=== PATIENT | female | born 1930 | race Caucasian/White ===

== ENCOUNTER 2018-07-19 14:01 | Inpatient (IN) | payer OTHER ==
[~2018-07-19] VITALS: Ht 167.6 cm; Wt 77.7 kg
[~2018-07-19 14:01] MED LIST: ATORVASTATIN CA20 MG PO; ATROVENT HFA12.9 GM INH; CALCIUM + VITA1 EACH PO; DICYCLOMINE HCL10 MG PO; FUROSEMIDE40 MG PO; GABAPENTIN100 MG PO; IRON PO; ISOSORBIDE MONO20 MG PO; LEVEMIR100 UNIT/1 SQ; LISINOPRIL2.5 MG PO; METOPROLOL SUCC50 MG PO; METOPROLOL TART50 MG PO; NOVOLIN 70100 UNITS/ SQ; NOVOLOG100 UNIT/1 SQ; POTASSIUM CHLO10 ME1 PO; PULMICORT1 MG/2 ML NEB; TIZANIDINE HCL4 M1 PO; ULTRAM 50MG50 MG PO; WARFARIN PO
--- OUTSIDE RECORDS SUMMARY | 2018-07-19 14:05 | XMS REPORT | Continuity of Care Document ---
Author Author [facility] Interface Address Unknown Phone Unavailable Problems Problem Status Onset Date Classification Date Reported Comments Source RT LOWER EXTREMITY VASCULAR OCCLUSSION Active 03/07/2012 [facility] Diabetes mellitus Active Problem 03/14/2012 [facility] Pain in right leg Active Problem 03/14/2012 [facility] ADMINISTRTVE ENCOUNT NOS Active [facility] PARANOID PERSONALITY Active [facility] Medications Medication Details Route Status Patient Instructions Ordering Provider Order Date Source Lovenox 80 mg/0.8 mL subcutaneous solution 80 mg, SUB-Q, Q12H, 12 syr, 1, 1, Substitution Allowed SUB-Q Active [place] 03/12/2012 [facility] Lovenox 80 mg, 0.8 mL, Route: SUB-Q, Drug form: INJ, ONCE, Priority: STAT, Start date: 03/12/12 15:41:00, Stop date: 03/12/12 15:41:00 SUB-Q No Longer Active [place] 03/12/2012 [facility] Coumadin 7.5 mg, 1 tab, Route: PO, Drug form: TAB, ONCE, Priority: STAT, Start date: 03/12/12 15:41:00, Stop date: 03/12/12 15:41:00 PO No Longer Active [place] 03/12/2012 [facility] Coumadin 5 mg oral tablet 5 mg, 1 tab, PO, Daily, 30 tab, Substitution Allowed, TAB PO Active [place] 03/12/2012 [facility] insulin aspart 100 units/mL subcutaneous solution 18 unit, 0.18 mL, SUB-Q, TID-Before Meals, 1 vial, 2, 2, Substitution Allowed, SOLN SUB-Q Active [place] 03/12/2012 [facility] insulin detemir 100 units/mL subcutaneous solution 30 unit, 0.3 mL, SUB-Q, Q12H, 1 vial, 2, 2, Substitution Allowed, SOLN SUB-Q Active [place] 03/12/2012 [facility] insulin aspart 15 unit, 0.15 mL, Route: SUB-Q, Drug form: SOLN, TID-Before Meals, PRN Blood Glucose Results, Start date: 03/11/12 16:48:00, Duration: 30 day, Stop date: 04/10/12 16:47:00 SUB-Q No Longer Active Rick 03/11/2012 [facility] Coumadin 7.5 mg, 1 tab, Route: PO, Drug form: TAB, ONCE, Priority: NOW, Start date: 03/11/12 9:28:00, Stop date: 03/11/12 9:28:00 PO No Longer Active Benjamin 03/11/2012 [facility] heparin 5,400 unit, 5.4 mL, Route: IV, Drug form: INJ, PRN, PRN Abnormal Lab Result, Start date: 03/11/12 7:14:00, Duration: 30 day, Stop date: 04/10/12 7:13:00 IV No Longer Active Madhavi Astudillo 03/11/2012 [facility] heparin 2,700 unit, 2.7 mL, Route: IV, Drug form: INJ, PRN, PRN Abnormal Lab Result, Start date: 03/11/12 7:12:00, Duration: 30 day, Stop date: 04/10/12 7:11:00 IV No Longer Active Madhavi Astudillo 03/11/2012 [facility] insulin detemir 30 unit, 0.3 mL, Route: SUB-Q, Drug form: INJ, Q12H, Start date: 03/10/12 21:00:00, Duration: 30 day, Stop date: 04/09/12 9:00:00 SUB-Q No Longer Active Rick 03/11/2012 [facility] insulin aspart 20 unit, 0.2 mL, Route: SUB-Q, Drug form: SOLN, TID-Before Meals, Start date: 03/10/12 16:30:00, Stop date: 04/09/12 11:30:00 SUB-Q No Longer Active Rick 03/10/2012 [facility] insulin aspart 10 unit, 0.1 mL, Route: SUB-Q, Drug form: SOLN, TID-Before Meals, PRN Blood Glucose Results, Start date: 03/10/12 16:27:00, Duration: 30 day, Stop date: 04/09/12 16:26:00 SUB-Q No Longer Active Rick 03/10/2012 [facility] morphine Sulfate 2 mg, 1 mL, Route: IVP, Drug form: INJ, Q4H, PRN Pain, Start date: 03/10/12 12:14:00, Duration: 30 day, Stop date: 04/09/12 12:13:00 IVP No Longer Active Sourav 03/10/2012 [facility] [place] 10/325 oral tablet 1 tab, Route: PO, Drug Form: TAB, Q4H, PRN Pain, STAT, Start date: 03/10/12 12:14:00, Duration: 30 day, Stop date: 04/09/12 12:13:00 PO No Longer Active Sourav 03/10/2012 [facility] insulin aspart 5 unit, 0.05 mL, Route: SUB-Q, Drug form: SOLN, TID-Before Meals, Start date: 03/10/12 11:30:00, Duration: 30 day, Stop date: 04/09/12 7:30:00 SUB-Q No Longer Active Rick 03/10/2012 [facility] insulin aspart 12 unit, 0.12 mL, Route: SUB-Q, Drug form: SOLN, TID-Before Meals, PRN Blood Glucose Results, Start date: 03/10/12 10:57:00, Duration: 30 day, Stop date: 04/09/12 10:56:00 SUB-Q No Longer Active Rick 03/10/2012 [facility] Dextrose 50% Syringe 25 gm, 50 mL, Route: IVP, Drug Form: INJ, PRN, PRN Blood Glucose Results, Start date: 03/10/12 10:57:00, Duration: 30 day, Stop date: 04/09/12 10:56:00 IVP No Longer Active Sourav 03/10/2012 [facility] glucagon 1 mg, Route: IM, Drug form: PDR/INJ, PRN, PRN Blood Glucose Results, Start date: 03/10/12 10:57:00, Duration: 30 day, Stop date: 04/09/12 10:56:00 IM No Longer Active Sourav 03/10/2012 [facility] insulin aspart 2 unit, 0.02 mL, Route: SUB-Q, Drug form: SOLN, TID-Before Meals, PRN Blood Glucose Results, Start date: 03/09/12 15:09:00, Duration: 30 day, Stop date: 04/08/12 15:08:00 SUB-Q No Longer Active [place] 03/09/2012 [facility] glucagon 1 mg, Route: IM, Drug form: PDR/INJ, PRN, PRN Blood Glucose Results, Start date: 03/09/12 15:09:00, Duration: 30 day, Stop date: 04/08/12 15:08:00 IM No Longer Active [place] 03/09/2012 [facility] Dextrose 50% Syringe 12.5 gm, 25 mL, Route: IVP, Drug Form: INJ, PRN, PRN Blood Glucose Results, Start date: 03/09/12 15:09:00, Duration: 30 day, Stop date: 04/08/12 15:08:00 IVP No Longer Active [place] 03/09/2012 [facility] calcium gluconate + Sodium Chloride 0.9% IV 80 mL 2,000 mg, 20 mL, Route: IVPB, ONCE, Start date: 03/09/12 10:22:00, Duration: 1 doses or times, Stop date: 03/09/12 10:22:00, For Ionized Ca=1 - 1.03 mmol/L or Corrected Ca=8 - 8.5mg/dLFor Ionized Ca=1 - 1.03 mmol/L or Corrected Ca=8 - 8.5mg/dL IVPB No Longer Active [place] 03/09/2012 [facility] magnesium sulfate 2 gm, 50 mL, Route: IVPB, Drug form: INJ, ONCE, Start date: 03/09/12 10:19:00, Duration: 1 doses or times, Stop date: 03/09/12 10:19:00, For Mg=1.8 - 2 mg/dLFor Mg=1.8 - 2 mg/dL IVPB No Longer Active [place] 03/09/2012 [facility] Heparin - infusion (DVT/PE Protocol) heparin 25,000 units in D5W 500 mL Premix 25,000 unit 25,000 unit, 500 mL, Rate: Start at 18 unit/Kg/hr -adjust per DVT/PE Protocol, Route: IV, Total Volume: 500 ml, Start date: 03/09/12 9:54:00, Duration: 30 day, Stop date: 04/08/12 9:53:00, Replace Every: 24 hr IV No Longer Active Nicole 03/09/2012 [facility] simvastatin 40 mg, 1 tab, Route: PO, Drug form: TAB, Bedtime, Start date: 03/07/12 21:00:00, Duration: 30 day, Stop date: 04/05/12 21:00:00 PO No Longer Active Tim 03/08/2012 [facility] potassium chloride 10 mEq oral tablet, extended release 10 mEq, 1 tab, Route: PO, Drug form: ERTAB, BID, Start date: 03/07/12 17:00:00, Duration: 30 day, Stop date: 04/06/12 9:00:00 PO No Longer Active Tim 03/07/2012 [facility] Pulmicort Flexhaler 1 inhalation, Route: INHALATION, Drug Form: PWDR, BID, Start date: 03/07/12 17:00:00, Duration: 30 day, Stop date: 04/06/12 9:00:00 INHALATION No Longer Active [facility] 03/07/2012 [facility] alteplase 10 mg + Sodium Chloride 0.9% IV 1,000 mL 1,000 mL, Rate: 50 ml/hr, Infuse over: 20 hr, Route: INTRAARTERIAL, Dosing Weight 67 kg, Total Volume: 1,000, Start date: 03/07/12 13:23:00, Duration: 7 day, Stop date: 03/14/12 13:22:00 INTRAARTERIAL No Longer Active Josias 03/07/2012 [facility] heparin 10,000 unit + Sodium Chloride 0.9% IV 1,000 mL 1,000 mL, Rate: 30 ml/hr, Infuse over: 33.3 hr, Route: IV, Dosing Weight 67 kg, Total Volume: 1,000, Start date: 03/07/12 13:21:00, Stop date: 03/14/12 13:20:00 IV No Longer Active Josias 03/07/2012 [facility] heparin 1000 units in NS Premix (titrate) 1,000 unit 1,000 unit, 500 mL, Rate: 30 ml per hour, Route: IV, Total Volume: 500, Start date: 03/07/12 12:30:00, Duration: 30 day, Stop date: 04/06/12 12:29:00, Replace Every: 24 hr IV No Longer Active [place] 03/07/2012 [facility] Toprol-XL 50 mg oral tablet, extended release 50 mg, 1 tab, Route: PO, Drug form: ERTAB, Daily, Start date: 03/07/12 11:00:00, Duration: 30 day, Stop date: 04/06/12 9:00:00 PO No Longer Active Tim 03/07/2012 [facility] digoxin 125 mcg (0.125 mg) oral tablet 0.125 mg, 1 tab, Route: PO, Drug form: TAB, Daily, Start date: 03/07/12 11:00:00, Duration: 30 day, Stop date: 04/06/12 9:00:00 PO No Longer Active Tim 03/07/2012 [facility] furosemide 40 mg oral tablet 40 mg, 1 tab, Route: PO, Drug form: TAB, Daily, Start date: 03/07/12 11:00:00, Duration: 30 day, Stop date: 04/06/12 9:00:00 PO No Longer Active Tim 03/07/2012 [facility] Insulin regular 100 unit + Sodium Chloride 0.9% (titrate) 100 mL 100 mL, Rate: Start Insulin Drip Per ICU Protocol, Route: IVPB, Total Volume: 100, Duration: 30 day, Stop date: 04/06/12 8:49:00, Replace Every: 24 hr, Initial Insulin Drip Rate (units/hour)=(Fasting Blood Glucose-60)X0.03 "multiplier".Initial Insulin Drip Rate (units/hour)=(Fasting Blood Glucose- 60)X0.03 "multiplier". IVPB No Longer Active [facility] 03/07/2012 [facility] Dextrose 50% Syringe 12.5 gm, 25 mL, Route: IVP, Drug Form: INJ, PRN, PRN Blood Glucose Results, Start date: 03/07/12 8:50:00, Duration: 30 day, Stop date: 04/06/12 8:49:00 IVP No Longer Active [facility] 03/07/2012 [facility] magnesium sulfate 2 gm, 50 mL, Route: IVPB, Drug form: INJ, ONCE, Total dose=2 gm, Start date: 03/07/12 8:48:00, Duration: 1 doses or times, Stop date: 03/07/12 8:48:00 IVPB No Longer Active Tim 03/07/2012 [facility] Atrovent HFA Substitution Allowed, Soft Stop Active 03/07/2012 [facility] simvastatin 40 mg oral tablet Substitution Allowed Active 03/07/2012 [facility] lisinopril 2.5 mg oral tablet Substitution Allowed Active 03/07/2012 [facility] Levemir Substitution Allowed No Longer Active 03/07/2012 [facility] warfarin Substitution Allowed No Longer Active 03/07/2012 [facility] isosorbide mononitrate Substitution Allowed Active 03/07/2012 [facility] digoxin 125 mcg (0.125 mg) oral tablet Substitution Allowed Active 03/07/2012 [facility] metoprolol 25 mg oral tablet Substitution Allowed Active 03/07/2012 [facility] potassium chloride 10 mEq oral capsule, extended release Substitution Allowed Active 03/07/2012 [facility] furosemide 40 mg oral tablet Substitution Allowed Active 03/07/2012 [facility] Iron Chews Substitution Allowed Active 03/07/2012 [facility] calcium-vitamin D 150 mg-100 units oral tablet Substitution Allowed, Soft Stop Active 03/07/2012 [facility] NovoLog Substitution Allowed Active 03/07/2012 [facility] Pulmicort Flexhaler Substitution Allowed, Soft Stop Active Tim 03/07/2012 [facility] hydromorphone 0.2 mg/mL [employer] (6 mg/30 mL) INJ Syringe 6 mg 6 mg, 30 mL, Route: IV, Initial Loading Dose: 0.4mg, [employer]ICE Dose: 0.2 mg, [employer]ICE Lockout: 10 minutes, Continuous Basal Rate: 0 mg, 4 Hour Limit (In MG): 6, Drug Form: INJ, Continuous, Pain, Start date: 03/07/12 5:26:00, Duration: 30 day, Stop date: 04/06/12... IV No Longer Active Sourav 03/07/2012 [facility] naloxone 0.04 mg, 0.1 mL, Route: IVP, Drug form: INJ, Q2MIN, PRN Narcotic Reversal, Start date: 03/07/12 5:26:00, Duration: 30 day, Stop date: 04/06/12 5:25:00 IVP No Longer Active [facility] 03/07/2012 [facility] nalbuphine 2 mg, 0.2 mL, Route: IVP, Drug form: INJ, Q2H, PRN Itching, Start date: 03/07/12 5:26:00, Duration: 5 doses or times, Stop date: 03/19/12 0:00:00 IVP No Longer Active [facility] 03/07/2012 [facility] ondansetron 4 mg, 2 mL, Route: IVP, Drug form: INJ, ONCE, PRN Nausea & Vomiting, Start date: 03/07/12 5:26:00 IVP No Longer Active [facility] 03/07/2012 [facility] Heparin - infusion (Stroke/Prophylaxis Protocol) heparin 25,000 units in D5W 500 mL Premix 25,000 u 25,000 unit, 500 mL, Rate: Start at 14 unit/Kg/hr -adjust per [place] protocol, Route: IV, Total Volume: 500 ml, Start date: 03/07/12 5:25:00, Duration: 30 day, Stop date: 04/06/12 5:24:00, Replace Every: 24 hr IV No Longer Active [place] 03/07/2012 [facility] heparin 1000 units in NS Premix (titrate) 1,000 unit 1,000 unit, 500 mL, Rate: Titrate, Route: IV, Total Volume: 500, Start date: 03/07/12 5:24:00, Duration: 30 day, Stop date: 04/06/12 5:23:00, Replace Every: 24 hr IV No Longer Active [facility] 03/07/2012 [facility] Sodium Chloride 0.9% IV 1,000 mL 1,000 mL, Rate: 125 ml/hr, Infuse over: 8 hr, Route: IV, Dosing Weight 82.002 kg, Total Volume: 1,000, Start date: 03/07/12 5:24:00, Duration: 30 day, Stop date: 04/06/12 5:23:00 IV No Longer Active [facility] 03/07/2012 [facility] Allergies, Adverse Reactions, Alerts Substance Category Reaction Severity Reaction type Status Date Reported Comments Source Demerol HCl drug allergy Allergy Active [facility] penicillins drug allergy Allergy Active [facility] Immunizations Immunization Date Given Site Status Last Updated Comments Source Results Order Name Results Value Reference Range Date Interpretation Comments Source BEDSIDE GLUCOSE TESTING Comment1 Notify CARA 03/12/2012 NA [facility] BEDSIDE GLUCOSE TESTING Gluc POC Lif[place]n 267 mg/dL 70 - 99 03/12/2012 [place] 2Interpretive Data: Upper Reportable Limit: 200 mg/dL. [facility] BEDSIDE GLUCOSE TESTING Gluc POC Lif[place]n 180 mg/dL 70 - 99 03/12/2012 [place] 3Interpretive Data: Upper Reportable Limit: 200 mg/dL. [facility] BEDSIDE GLUCOSE TESTING Comment1 Notify JASE/ 03/12/2012 NA [facility] CHEMISTRY AGAP 14.6 meq/L 10.0 - 20.0 03/12/2012 Normal [facility] CHEMISTRY Chloride Lvl 103 meq/L 95 - 109 03/12/2012 Normal [facility] CHEMISTRY Potassium Lvl 4.6 meq/L 3.5 - 5.1 03/12/2012 Normal [facility] CHEMISTRY Sodium Lvl 141 meq/L 135 - 145 03/12/2012 Normal [facility] CHEMISTRY BUN 18 mg/dL 7 - 22 03/12/2012 Normal [facility] CHEMISTRY Creatinine Lvl 0.8 mg/dL 0.5 - 1.4 03/12/2012 Normal [facility] CHEMISTRY Glucose Lvl 122 mg/dL 70 - 99 03/12/2012 [place] 5Interpretive Data: Adult reference range values reflect the clinical guidelines of the [employer]. [facility] CHEMISTRY Calcium Lvl 9.0 mg/dL 8.5 - 10.5 03/12/2012 Normal [facility] CHEMISTRY CO2 28 meq/L 24 - 32 03/12/2012 Normal [facility] HEMATOLOGY Basophils # 0.0 K/CMM 0.0 - 0.2 03/12/2012 Normal [facility] HEMATOLOGY Eosinophils # 0.2 K/CMM 0.0 - 0.5 03/12/2012 Normal [facility] HEMATOLOGY Basophils 0.4 % 0.0 - 1.0 03/12/2012 Normal [facility] HEMATOLOGY Segs-Bands # 4.8 K/CMM 1.5 - 8.1 03/12/2012 Normal [facility] HEMATOLOGY Eosinophils 3.0 % 0.0 - 4.0 03/12/2012 Normal [facility] HEMATOLOGY Lymphocytes # 2.0 K/CMM 1.0 - 5.5 03/12/2012 Normal [facility] HEMATOLOGY Monocytes # 0.8 K/CMM 0.0 - 0.8 03/12/2012 Normal [facility] HEMATOLOGY Monocytes 9.9 % 2.0 - 12.0 03/12/2012 Normal [facility] HEMATOLOGY Segs 61.2 % 45.0 - 75.0 03/12/2012 Normal [facility] HEMATOLOGY Lymphocytes 25.5 % 20.0 - 40.0 03/12/2012 [facility] HEMATOLOGY PTT 75.5 s 22.9 - 35.8 03/12/2012 [place] 12Interpretive Data: Heparin Therapeutic Range: 57 - 92 Seconds [facility] HEMATOLOGY PT 16.3 s 12.0 - 14.7 03/12/2012 [facility] HEMATOLOGY INR 1.32 0.85 - 1.17 03/12/2012 [place] 9Interpretive Data: RECOMMENDED RANGES FOR PROTIME INR: 2.0-3.0 for most medical and surgical thromboembolic states. 2.5-3.5 for artificial heart valves and recurrent embolism. INR SHOULD BE USED ONLY FOR PATIENTS ON STABLE ANTICOAGULANT THERAPY. [facility] HEMATOLOGY Hgb 10.7 g/dL 12.0 - 16.0 03/12/2012 [facility] HEMATOLOGY MCH 33.6 pg 27.0 - 31.0 03/12/2012 [facility] HEMATOLOGY Hct 30.7 % 36.0 - 48.0 03/12/2012 LOW [facility] HEMATOLOGY MCV 96.5 fL 81.0 - 99.0 03/12/2012 [facility] HEMATOLOGY MCHC 34.9 g/dL 32.0 - 36.0 03/12/2012 [facility] HEMATOLOGY MPV 8.7 fL 7.4 - 10.4 03/12/2012 [facility] HEMATOLOGY RDW 13.4 % 11.5 - 14.5 03/12/2012 Normal [facility] HEMATOLOGY Platelet 195 K/CMM 133 - 450 03/12/2012 Normal [facility] HEMATOLOGY WBC 7.9 K/CMM 3.7 - 10.4 03/12/2012 [facility] HEMATOLOGY RBC 3.18 M/CMM 4.20 - 5.40 03/12/2012 LOW [facility] HEMATOLOGY PTT 72.1 s 22.9 - 35.8 03/12/2012 [place] 13Interpretive Data: Heparin Therapeutic Range: 57 - 92 Seconds [facility] BEDSIDE GLUCOSE TESTING Comment1 Notify RN/ 03/12/2012 NA [facility] BEDSIDE GLUCOSE TESTING Gluc POC Lifscn 123 mg/dL 70 - 99 03/12/2012 [place] 4Interpretive Data: Upper Reportable Limit: 200 mg/dL. [facility] HEMATOLOGY PT 14.5 s 12.0 - 14.7 03/11/2012 Normal [facility] HEMATOLOGY INR 1.13 0.85 - 1.17 03/11/2012 Normal 10Interpretive Data: RECOMMENDED RANGES FOR PROTIME INR: 2.0-3.0 for most medical and surgical thromboembolic states. 2.5-3.5 for artificial heart valves and recurrent embolism. INR SHOULD BE USED ONLY FOR PATIENTS ON STABLE ANTICOAGULANT THERAPY. [facility] HEMATOLOGY PTT 61.3 s 22.9 - 35.8 03/11/2012 [place] 14Interpretive Data: Heparin Therapeutic Range: 57 - 92 Seconds [facility] CHEMISTRY Potassium Lvl 4.5 meq/L 3.5 - 5.1 03/11/2012 Normal [facility] CHEMISTRY Sodium Lvl 140 meq/L 135 - 145 03/11/2012 Normal [facility] CHEMISTRY Creatinine Lvl 0.8 mg/dL 0.5 - 1.4 03/11/2012 Normal [facility] CHEMISTRY BUN 13 mg/dL 7 - 22 03/11/2012 Normal [facility] CHEMISTRY Calcium Lvl 9.2 mg/dL 8.5 - 10.5 03/11/2012 Normal [facility] CHEMISTRY CO2 28 meq/L 24 - 32 03/11/2012 Normal [facility] CHEMISTRY Chloride Lvl 103 meq/L 95 - 109 03/11/2012 Normal [facility] CHEMISTRY Glucose Lvl 220 mg/dL 70 - 99 03/11/2012 [place] 6Interpretive Data: Adult reference range values reflect the clinical guidelines of the [employer]. [facility] CHEMISTRY AGAP 13.5 meq/L 10.0 - 20.0 03/11/2012 Normal [facility] CHEMISTRY Magnesium Lvl 2.0 mg/dL 1.8 - 2.4 03/11/2012 Normal [facility] CHEMISTRY Phosphorus 2.6 mg/dL 2.5 - 4.5 03/11/2012 Normal [facility] HEMATOLOGY INR 1.16 0.85 - 1.17 03/11/2012 Normal 11Interpretive Data: RECOMMENDED RANGES FOR PROTIME INR: 2.0-3.0 for most medical and surgical thromboembolic states. 2.5-3.5 for artificial heart valves and recurrent embolism. INR SHOULD BE USED ONLY FOR PATIENTS ON STABLE ANTICOAGULANT THERAPY. [facility] HEMATOLOGY PT 14.8 s 12.0 - 14.7 03/11/2012 [facility] HEMATOLOGY MCV 96.8 fL 81.0 - 99.0 03/11/2012 Normal [facility] HEMATOLOGY Hct 29.3 % 36.0 - 48.0 03/11/2012 [facility] HEMATOLOGY Hgb 10.2 g/dL 12.0 - 16.0 03/11/2012 [facility] HEMATOLOGY RBC 3.03 M/CMM 4.20 - 5.40 03/11/2012 [facility] HEMATOLOGY RDW 13.1 % 11.5 - 14.5 03/11/2012 Normal [facility] HEMATOLOGY MCH 33.7 pg 27.0 - 31.0 03/11/2012 [facility] HEMATOLOGY MCHC 34.8 g/dL 32.0 - 36.0 03/11/2012 Normal [facility] HEMATOLOGY WBC 6.5 K/CMM 3.7 - 10.4 03/11/2012 [facility] HEMATOLOGY Platelet 151 K/CMM 133 - 450 03/11/2012 [facility] HEMATOLOGY MPV 8.8 fL 7.4 - 10.4 03/11/2012 Normal [facility] HEMATOLOGY Lymphocytes 24.6 % 20.0 - 40.0 03/11/2012 [facility] HEMATOLOGY Segs 62.5 % 45.0 - 75.0 03/11/2012 [facility] HEMATOLOGY Monocytes 11.6 % 2.0 - 12.0 03/11/2012 [facility] HEMATOLOGY Basophils # 0.0 K/CMM 0.0 - 0.2 03/11/2012 [facility] HEMATOLOGY Monocytes # 0.8 K/CMM 0.0 - 0.8 03/11/2012 [facility] HEMATOLOGY Eosinophils 1.2 % 0.0 - 4.0 03/11/2012 Normal [facility] HEMATOLOGY Basophils 0.1 % 0.0 - 1.0 03/11/2012 Normal [facility] HEMATOLOGY Eosinophils # 0.1 K/CMM 0.0 - 0.5 03/11/2012 Normal [facility] HEMATOLOGY Segs-Bands # 4.1 K/CMM 1.5 - 8.1 03/11/2012 Normal [facility] HEMATOLOGY Lymphocytes # 1.6 K/CMM 1.0 - 5.5 03/11/2012 Normal [facility] CHEMISTRY Ca Norm mgdL 4.76 mg/dL 4.65 - 5.20 03/10/2012 Normal [facility] CHEMISTRY Ca Ion 1.18 mMol/L 1.16 - 1.30 03/10/2012 Normal [facility] CHEMISTRY Ca Ion mgdL 4.72 mg/dL 4.65 - 5.20 03/10/2012 Normal [facility] CHEMISTRY Ca Norm 1.19 mMol/L 1.16 - 1.30 03/10/2012 Normal [facility] CHEMISTRY Chloride Lvl 102 meq/L 95 - 109 03/10/2012 Normal [facility] CHEMISTRY Creatinine Lvl 1.0 mg/dL 0.5 - 1.4 03/10/2012 Normal [facility] CHEMISTRY BUN 11 mg/dL 7 - 22 03/10/2012 Normal [facility] CHEMISTRY Potassium Lvl 4.7 meq/L 3.5 - 5.1 03/10/2012 Normal [facility] CHEMISTRY Sodium Lvl 139 meq/L 135 - 145 03/10/2012 Normal [facility] CHEMISTRY Glucose Lvl 259 mg/dL 70 - 99 03/10/2012 [place] 7Interpretive Data: Adult reference range values reflect the clinical guidelines of the [employer]. [facility] CHEMISTRY CO2 30 meq/L 24 - 32 03/10/2012 Normal [facility] CHEMISTRY AGAP 11.7 meq/L 10.0 - 20.0 03/10/2012 Normal [facility] CHEMISTRY Calcium Lvl 8.0 mg/dL 8.5 - 10.5 03/10/2012 LOW [facility] CHEMISTRY Magnesium Lvl 1.9 mg/dL 1.8 - 2.4 03/10/2012 Normal [facility] CHEMISTRY Phosphorus 2.7 mg/dL 2.5 - 4.5 03/10/2012 [facility] HEMATOLOGY MPV 8.4 fL 7.4 - 10.4 03/10/2012 [facility] HEMATOLOGY RDW 13.5 % 11.5 - 14.5 03/10/2012 [facility] HEMATOLOGY Platelet 139 K/CMM 133 - 450 03/10/2012 [facility] [facility] HEMATOLOGY MCHC 34.1 g/dL 32.0 - 36.0 03/10/2012 [facility] HEMATOLOGY WBC 9.8 K/CMM 3.7 - 10.4 03/10/2012 [facility] HEMATOLOGY Hgb 10.8 g/dL 12.0 - 16.0 03/10/2012 [facility] HEMATOLOGY MCH 33.4 pg 27.0 - 31.0 03/10/2012 [facility] HEMATOLOGY Hct 31.8 % 36.0 - 48.0 03/10/2012 [facility] HEMATOLOGY RBC 3.24 M/CMM 4.20 - 5.40 03/10/2012 [facility] HEMATOLOGY MCV 98.0 fL 81.0 - 99.0 03/10/2012 [facility] HEMATOLOGY Segs-Bands # 7.1 K/CMM 1.5 - 8.1 03/10/2012 [facility] HEMATOLOGY Eosinophils # 0.1 K/CMM 0.0 - 0.5 03/10/2012 [facility] HEMATOLOGY Lymphocytes # 1.6 K/CMM 1.0 - 5.5 03/10/2012 [facility] HEMATOLOGY Basophils 0.1 % 0.0 - 1.0 03/10/2012 [facility] HEMATOLOGY Monocytes # 1.1 K/CMM 0.0 - 0.8 03/10/2012 [facility] HEMATOLOGY Basophils # 0.0 K/CMM 0.0 - 0.2 03/10/2012 [facility] HEMATOLOGY Eosinophils 0.6 % 0.0 - 4.0 03/10/2012 [facility] HEMATOLOGY Lymphocytes 15.9 % 20.0 - 40.0 03/10/2012 [facility] HEMATOLOGY Monocytes 10.7 % 2.0 - 12.0 03/10/2012 [facility] HEMATOLOGY Segs 72.7 % 45.0 - 75.0 03/10/2012 Normal [facility] CHEMISTRY Magnesium Lvl 1.6 mg/dL 1.8 - 2.4 03/09/2012 LOW [facility] CHEMISTRY Phosphorus 2.7 mg/dL 2.5 - 4.5 03/09/2012 Normal [facility] HEMATOLOGY Fibrinogen Lvl 371 mg/dL 230 - 510 03/09/2012 Normal [facility] HEMATOLOGY Fibrinogen Lvl 348 mg/dL 230 - 510 03/08/2012 Normal [facility] HEMATOLOGY Fibrinogen Lvl 204 mg/dL 230 - 510 03/08/2012 LOW [facility] HEMATOLOGY Large Plt Slight *ABN* (03/08/2012 06:26:00) None Seen 03/08/2012 ABN [facility] CHEMISTRY Lactic Acid Lvl 2.3 mMol/L 0.5 - 2.2 03/07/2012 HI 8Result Comment: Specimen Grossly Hemolyzed. [facility] BACTERIAL - SEROLOGY MRSA by PCR Negative 1 (03/07/2012 05:18:00) 03/07/2012 Normal 1Interpretive Data: INTERPRETATION: Negative......No MRSA DNA detected by PCR Positive......MRSA DNA detected by PCR ASSAY LIMITATIONS: This is a screening test for colonization by MRSA. A positive test result indicates the patient is colonized by MRSA, but does not necessarily mean that an infection is present or that treatment is necessary. Likewise, a negative test does not exclude colonization or infection. Patients should be evaluated clinically for symptoms and signs of infection before making therapeutic decisions. Routine decolonization is discouraged and should only be considered for select patients after consultation with an infectious diseases specialist. [facility] CHEMISTRY AST 16 U/L 0 - 37 03/07/2012 Normal [facility] CHEMISTRY Total Protein 7.3 g/dL 6.4 - 8.4 03/07/2012 Normal [facility] CHEMISTRY Albumin Lvl 3.8 g/dL 3.5 - 5.0 03/07/2012 Normal [facility] CHEMISTRY Alk Phos 53 U/L 39 - 136 03/07/2012 Normal [facility] CHEMISTRY Bili Total 1.0 mg/dL 0.2 - 1.3 03/07/2012 Normal [facility] CHEMISTRY Bili Direct 0.2 mg/dL 0.0 - 0.3 03/07/2012 Normal [facility] CHEMISTRY ALT 18 U/L 0 - 65 03/07/2012 Normal [facility] CHEMISTRY Bili Indirect 0.8 mg/dL 0.0 - 1.0 03/07/2012 Normal [facility] CHEMISTRY Globulin 3.5 g/dL 2.0 - 4.0 03/07/2012 Normal [facility] CHEMISTRY A/G Ratio 1.1 0.7 - 1.6 03/07/2012 Normal [facility] Vital Signs Vital Sign Value Date Comments Source Systolic (mm Hg) 134 03/12/2012 [facility] Heart Rate 63 03/12/2012 [facility] Temperature Oral (F) 97.3 F 03/12/2012 [facility] Diastolic (mm Hg) 56 03/12/2012 [facility] Heart Rate 64 03/12/2012 [facility] Diastolic (mm Hg) 54 03/12/2012 [facility] Systolic (mm Hg) 143 03/12/2012 [facility] Systolic (mm Hg) 158 03/12/2012 [facility] Diastolic (mm Hg) 71 03/12/2012 [facility] Heart Rate 61 03/12/2012 [facility] Respitory Rate 20 03/12/2012 [facility] Respitory Rate 20 03/12/2012 [facility] Respitory Rate 20 03/12/2012 [facility] Temperature Oral (F) 98.0 F 03/11/2012 [facility] Temperature Oral (F) 99.5 F 03/11/2012 [facility] Weight 67 03/07/2012 [facility] Weight 82.002 03/07/2012 [facility] Height 165.10 cm 03/07/2012 [facility] Encounters Location Location Details Encounter Type Encounter Number Reason For Visit Attending Provider ADM Date DC Date Status Source [facility] Inpatient [id number] RT LOWER EXTREMITY VASCULAR OCCLUSSION SAMM ASTUDILLO 03/07/2012 03/12/2012 Active [facility] Procedures Procedure Code Date Perfomer Comments Source
--- OUTSIDE RECORDS SUMMARY | 2018-07-19 14:05 | XMS REPORT ---
Author Author [facility] Address Unknown Phone Unavailable Care Team Providers [employer] Name Role Phone Unavailable Unavailable Payers Payer Name Policy Type Policy Number Effective Date Expiration Date Problems This patient has no known problems. Allergies, Adverse Reactions, Alerts Allergy Name Allergy Type Status Severity Reaction(s) Onset Date Inactive Date Treating Clinician Comments No Known Allergies DA Active U 2015-03-27 00:00:00 Medications This patient has no known medications.
--- OUTSIDE RECORDS SUMMARY | 2018-07-19 14:05 | XMS REPORT | CCD ---
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 Name Role Phone Erlin Darby CP Seth Rivera CP Roderick Nguyễn RP Unavailable Allergies, Adverse Reactions, Alerts Substance Reaction Status Demerol HCl Active NKDA Active penicillins Active Problem List Condition Effective Dates Status Diabetes mellitus Active Pain in right leg Active Medications Medication Instructions Start Date End Date Status magnesium sulfate 2 gm, 50 mL, Route: IVPB, Drug 03/09/2012 03/09/2012 Completed form: INJ, ONCE, Start date: 03/09/12 10:19:00, Duration: 1 doses or times, Stop date: 03/09/12 10:19:00, For Mg=1.8 - 2 mg/dL For Mg=1.8 - 2 mg/dL insulin aspart 20 unit, 0.2 mL, Route: SUB-Q, Drug 03/10/2012 03/12/2012 Discontinued form: SOLN, TID-Before Meals, Start date: 03/10/12 16:30:00, Stop date: 04/09/12 11:30:00 insulin detemir 30 unit, 0.3 mL, Route: SUB-Q, Drug 03/10/2012 03/12/2012 Discontinued form: INJ, Q12H, Start date: 03/10/12 21:00:00, Duration: 30 day, Stop date: 04/09/12 9:00:00 insulin aspart 10 unit, 0.1 mL, Route: SUB-Q, Drug 03/10/2012 03/11/2012 Discontinued form: SOLN, TID-Before Meals, PRN Blood Glucose Results, Start date: 03/10/12 16:27:00, Duration: 30 day, Stop date: 04/09/12 16:26:00 insulin aspart 8 unit, 0.08 mL, Route: SUB-Q, Drug 03/10/2012 03/11/2012 Discontinued form: SOLN, TID-Before Meals, PRN Blood Glucose Results, Start date: 03/10/12 16:27:00, Duration: 30 day, Stop date: 04/09/12 16:26:00 insulin aspart 2 unit, 0.02 mL, Route: SUB-Q, Drug 03/10/2012 03/11/2012 Discontinued form: SOLN, TID-Before Meals, PRN Blood Glucose Results, Start date: 03/10/12 16:27:00, Duration: 30 day, Stop date: 04/09/12 16:26:00 insulin aspart 6 unit, 0.06 mL, Route: SUB-Q, Drug 03/10/2012 03/11/2012 Discontinued form: SOLN, TID-Before Meals, PRN Blood Glucose Results, Start date: 03/10/12 16:27:00, Duration: 30 day, Stop date: 04/09/12 16:26:00 insulin aspart 4 unit, 0.04 mL, Route: SUB-Q, Drug 03/10/2012 03/11/2012 Discontinued form: SOLN, TID-Before Meals, PRN Blood Glucose Results, Start date: 03/10/12 16:27:00, Duration: 30 day, Stop date: 04/09/12 16:26:00 heparin 10,000 unit 1,000 mL, Rate: 30 ml/hr, Infuse 03/07/2012 03/12/2012 Discontinued + Sodium Chloride over: 33.3 hr, Route: IV, Dosing 0.9% IV 1,000 mL Weight 67 kg, Total Volume: 1,000, Start date: 03/07/12 13:21:00, Stop date: 03/14/12 13:20:00 insulin aspart 12 unit, 0.12 mL, Route: SUB-Q, 03/10/2012 03/10/2012 Discontinued Drug form: SOLN, TID-Before Meals, PRN Blood Glucose Results, Start date: 03/10/12 10:57:00, Duration: 30 day, Stop date: 04/09/12 10:56:00 insulin aspart 15 unit, 0.15 mL, Route: SUB-Q, 03/10/2012 03/10/2012 Discontinued Drug form: SOLN, TID-Before Meals, PRN Blood Glucose Results, Start date: 03/10/12 10:57:00, Duration: 30 day, Stop date: 04/09/12 10:56:00 insulin aspart 6 unit, 0.06 mL, Route: SUB-Q, Drug 03/10/2012 03/10/2012 Discontinued form: SOLN, TID-Before Meals, PRN Blood Glucose Results, Start date: 03/10/12 10:57:00, Duration: 30 day, Stop date: 04/09/12 10:56:00 insulin aspart 9 unit, 0.09 mL, Route: SUB-Q, Drug 03/10/2012 03/10/2012 Discontinued form: SOLN, TID-Before Meals, PRN Blood Glucose Results, Start date: 03/10/12 10:57:00, Duration: 30 day, Stop date: 04/09/12 10:56:00 insulin aspart 3 unit, 0.03 mL, Route: SUB-Q, Drug 03/10/2012 03/10/2012 Discontinued form: SOLN, TID-Before Meals, PRN Blood Glucose Results, Start date: 03/10/12 10:57:00, Duration: 30 day, Stop date: 04/09/12 10:56:00 Dextrose 50% Syringe 25 gm, 50 mL, Route: IVP, Drug 03/10/2012 03/12/2012 Discontinued Form: INJ, PRN, PRN Blood Glucose Results, Start date: 03/10/12 10:57:00, Duration: 30 day, Stop date: 04/09/12 10:56:00 Dextrose 50% Syringe 12.5 gm, 25 mL, Route: IVP, Drug 03/10/2012 03/12/2012 Discontinued Form: INJ, PRN, PRN Blood Glucose Results, Start date: 03/10/12 10:57:00, Duration: 30 day, Stop date: 04/09/12 10:56:00 insulin aspart 5 unit, 0.05 mL, Route: SUB-Q, Drug 03/10/2012 03/10/2012 Discontinued form: SOLN, TID-Before Meals, Start date: 03/10/12 11:30:00, Duration: 30 day, Stop date: 04/09/12 7:30:00 glucagon 1 mg, Route: IM, Drug form: 03/10/2012 03/12/2012 Discontinued PDR/INJ, PRN, PRN Blood Glucose Results, Start date: 03/10/12 10:57:00, Duration: 30 day, Stop date: 04/09/12 10:56:00 heparin 5,400 unit, 5.4 mL, Route: IV, Drug 03/11/2012 03/12/2012 Discontinued form: INJ, PRN, PRN Abnormal Lab Result, Start date: 03/11/12 7:14:00, Duration: 30 day, Stop date: 04/10/12 7:13:00 simvastatin 40 mg, 1 tab, Route: PO, Drug form: 03/07/2012 03/12/2012 Discontinued TAB, Bedtime, Start date: 03/07/12 21:00:00, Duration: 30 day, Stop date: 04/05/12 21:00:00 Coumadin 5 mg oral 5 mg, 1 tab, PO, Daily, 30 tab, 03/12/2012 Ordered tablet Substitution Allowed, TAB potassium chloride 10 mEq, 1 tab, Route: PO, Drug 03/07/2012 03/12/2012 Discontinued 10 mEq oral tablet, form: ERTAB, BID, Start date: extended release 03/07/12 17:00:00, Duration: 30 day, Stop date: 04/06/12 9:00:00 Toprol-XL 50 mg oral 50 mg, 1 tab, Route: PO, Drug form: 03/07/2012 03/12/2012 Discontinued tablet, extended ERTAB, Daily, Start date: 03/07/12 release 11:00:00, Duration: 30 day, Stop date: 04/06/12 9:00:00 digoxin 125 mcg 0.125 mg, 1 tab, Route: PO, Drug 03/07/2012 03/12/2012 Discontinued (0.125 mg) oral form: TAB, Daily, Start date: tablet 03/07/12 11:00:00, Duration: 30 day, Stop date: 04/06/12 9:00:00 furosemide 40 mg 40 mg, 1 tab, Route: PO, Drug form: 03/07/2012 03/12/2012 Discontinued oral tablet TAB, Daily, Start date: 03/07/12 11:00:00, Duration: 30 day, Stop date: 04/06/12 9:00:00 insulin aspart 100 18 unit, 0.18 mL, SUB-Q, TID-Before 03/12/2012 Ordered units/mL Meals, 1 vial, 2, 2, Substitution subcutaneous Allowed, SOLN solution insulin detemir 100 30 unit, 0.3 mL, SUB-Q, Q12H, 1 03/12/2012 Ordered units/mL vial, 2, 2, Substitution Allowed, subcutaneous SOLN solution heparin 2,700 unit, 2.7 mL, Route: IV, Drug 03/11/2012 03/12/2012 Discontinued form: INJ, PRN, PRN Abnormal Lab Result, Start date: 03/11/12 7:12:00, Duration: 30 day, Stop date: 04/10/12 7:11:00 heparin 1000 units 1,000 unit, 500 mL, Rate: 30 ml per 03/07/2012 03/07/2012 Discontinued in NS Premix hour, Route: IV, Total Volume: 500, (titrate) 1,000 unit Start date: 03/07/12 12:30:00, Duration: 30 day, Stop date: 04/06/12 12:29:00, Replace Every: 24 hr insulin aspart 2 unit, 0.02 mL, Route: SUB-Q, Drug 03/09/2012 03/10/2012 Discontinued form: SOLN, TID-Before Meals, PRN Blood Glucose Results, Start date: 03/09/12 15:09:00, Duration: 30 day, Stop date: 04/08/12 15:08:00 insulin aspart 4 unit, 0.04 mL, Route: SUB-Q, Drug 03/09/2012 03/10/2012 Discontinued form: SOLN, TID-Before Meals, PRN Blood Glucose Results, Start date: 03/09/12 15:09:00, Duration: 30 day, Stop date: 04/08/12 15:08:00 insulin aspart 10 unit, 0.1 mL, Route: SUB-Q, Drug 03/09/2012 03/10/2012 Discontinued form: SOLN, TID-Before Meals, PRN Blood Glucose Results, Start date: 03/09/12 15:09:00, Duration: 30 day, Stop date: 04/08/12 15:08:00 insulin aspart 6 unit, 0.06 mL, Route: SUB-Q, Drug 03/09/2012 03/10/2012 Discontinued form: SOLN, TID-Before Meals, PRN Blood Glucose Results, Start date: 03/09/12 15:09:00, Duration: 30 day, Stop date: 04/08/12 15:08:00 insulin aspart 8 unit, 0.08 mL, Route: SUB-Q, Drug 03/09/2012 03/10/2012 Discontinued form: SOLN, TID-Before Meals, PRN Blood Glucose Results, Start date: 03/09/12 15:09:00, Duration: 30 day, Stop date: 04/08/12 15:08:00 glucagon 1 mg, Route: IM, Drug form: 03/09/2012 03/10/2012 Discontinued PDR/INJ, PRN, PRN Blood Glucose Results, Start date: 03/09/12 15:09:00, Duration: 30 day, Stop date: 04/08/12 15:08:00 Dextrose 50% Syringe 12.5 gm, 25 mL, Route: IVP, Drug 03/09/2012 03/10/2012 Discontinued Form: INJ, PRN, PRN Blood Glucose Results, Start date: 03/09/12 15:09:00, Duration: 30 day, Stop date: 04/08/12 15:08:00 Dextrose 50% Syringe 25 gm, 50 mL, Route: IVP, Drug 03/09/2012 03/10/2012 Discontinued Form: INJ, PRN, PRN Blood Glucose Results, Start date: 03/09/12 15:09:00, Duration: 30 day, Stop date: 04/08/12 15:08:00 morphine Sulfate 2 mg, 1 mL, Route: IVP, Drug form: 03/10/2012 03/12/2012 Discontinued INJ, Q4H, PRN Pain, Start date: 03/10/12 12:14:00, Duration: 30 day, Stop date: 04/09/12 12:13:00 Pulmicort Flexhaler 1 inhalation, Route: INHALATION, 03/07/2012 03/12/2012 Discontinued Drug Form: PWDR, BID, Start date: 03/07/12 17:00:00, Duration: 30 day, Stop date: 04/06/12 9:00:00 [place] 10/325 oral 1 tab, Route: PO, Drug Form: TAB, 03/10/2012 03/12/2012 Discontinued tablet Q4H, PRN Pain, STAT, Start date: 03/10/12 12:14:00, Duration: 30 day, Stop date: 04/09/12 12:13:00 Insulin regular 100 100 mL, Rate: Start Insulin Drip 03/07/2012 03/12/2012 Discontinued unit + Sodium Per ICU Protocol, Route: IVPB, Chloride 0.9% Total Volume: 100, Duration: 30 (titrate) 100 mL day, Stop date: 04/06/12 8:49:00, Replace Every: 24 hr, Initial Insulin Drip Rate (units/hour)=(Fasting Blood Glucose-60)X0.03 "multiplier". Initial Insulin Drip Rate (units/hour)=(Fasting Blood Glucose-60)X0.03 "multiplier". Dextrose 50% Syringe 12.5 gm, 25 mL, Route: IVP, Drug 03/07/2012 03/10/2012 Discontinued Form: INJ, PRN, PRN Blood Glucose Results, Start date: 03/07/12 8:50:00, Duration: 30 day, Stop date: 04/06/12 8:49:00 Dextrose 50% Syringe 25 gm, 50 mL, Route: IVP, Drug 03/07/2012 03/10/2012 Discontinued Form: INJ, PRN, PRN Blood Glucose Results, Start date: 03/07/12 8:50:00, Duration: 30 day, Stop date: 04/06/12 8:49:00 Heparin - infusion 25,000 unit, 500 mL, Rate: Start at 03/09/2012 03/12/2012 Discontinued (DVT/PE Protocol) 18 unit/Kg/hr -adjust per DVT/PE heparin 25,000 units Protocol, Route: IV, Total Volume: in D5W 500 mL Premix 500 ml, Start date: 03/09/12 25,000 unit 9:54:00, Duration: 30 day, Stop date: 04/08/12 9:53:00, Replace Every: 24 hr Coumadin 7.5 mg, 1 tab, Route: PO, Drug 03/11/2012 03/11/2012 Completed form: TAB, ONCE, Priority: NOW, Start date: 03/11/12 9:28:00, Stop date: 03/11/12 9:28:00 Lovenox 80 mg/0.8 mL 80 mg, SUB-Q, Q12H, 12 syr, 1, 1, 03/12/2012 03/24/2012 Ordered subcutaneous Substitution Allowed solution magnesium sulfate 2 gm, 50 mL, Route: IVPB, Drug 03/07/2012 03/07/2012 Completed form: INJ, ONCE, Total dose=2 gm, Start date: 03/07/12 8:48:00, Duration: 1 doses or times, Stop date: 03/07/12 8:48:00 Heparin - infusion 25,000 unit, 500 mL, Rate: Start at 03/07/2012 03/12/2012 Discontinued (Stroke/Prophylaxis 14 unit/Kg/hr -adjust per [place] Protocol) heparin protocol, Route: IV, Total Volume: 25,000 units in D5W 500 ml, Start date: 03/07/12 500 mL Premix 25,000 5:25:00, Duration: 30 day, Stop u date: 04/06/12 5:24:00, Replace Every: 24 hr hydromorphone 0.2 6 mg, 30 mL, Route: IV, Initial 03/07/2012 03/10/2012 Discontinued mg/mL [employer] FLAT[employer]ED (6 mg/30 Loading Dose: 0.4mg, [employer] FLATBED Dose: 0.2 mL) INJ Syringe 6 mg, [employer] FLAT[employer] Lockout: 10 minutes, mg Continuous Basal Rate: 0 mg, 4 Hour Limit (In MG): 6, Drug Form: INJ, Continuous, Pain, Start date: 03/07/12 5:26:00, Duration: 30 day, Stop date: 04/06/12... naloxone 0.04 mg, 0.1 mL, Route: IVP, Drug 03/07/2012 03/12/2012 Discontinued form: INJ, Q2MIN, PRN Narcotic Reversal, Start date: 03/07/12 5:26:00, Duration: 30 day, Stop date: 04/06/12 5:25:00 nalbuphine 2 mg, 0.2 mL, Route: IVP, Drug 03/07/2012 03/12/2012 Discontinued form: INJ, Q2H, PRN Itching, Start date: 03/07/12 5:26:00, Duration: 5 doses or times, Stop date: 03/19/12 0:00:00 ondansetron 4 mg, 2 mL, Route: IVP, Drug form: 03/07/2012 03/12/2012 Discontinued INJ, ONCE, PRN Nausea & Vomiting, Start date: 03/07/12 5:26:00 heparin 1000 units 1,000 unit, 500 mL, Rate: Titrate, 03/07/2012 03/07/2012 Deleted in NS Premix Route: IV, Total Volume: 500, Start (titrate) 1,000 unit date: 03/07/12 5:24:00, Duration: 30 day, Stop date: 04/06/12 5:23:00, Replace Every: 24 hr Lovenox 80 mg, 0.8 mL, Route: SUB-Q, Drug 03/12/2012 03/12/2012 Completed form: INJ, ONCE, Priority: STAT, Start date: 03/12/12 15:41:00, Stop date: 03/12/12 15:41:00 calcium gluconate + 2,000 mg, 20 mL, Route: IVPB, ONCE, 03/09/2012 03/09/2012 Completed Sodium Chloride 0.9% Start date: 03/09/12 10:22:00, IV 80 mL Duration: 1 doses or times, Stop date: 03/09/12 10:22:00, For Ionized Ca=1 - 1.03 mmol/L or Corrected Ca=8 - 8.5mg/dL For Ionized Ca=1 - 1.03 mmol/L or Corrected Ca=8 - 8.5mg/dL Atrovent HFA Substitution Allowed, Soft Stop 03/07/2012 Ordered simvastatin 40 mg Substitution Allowed 03/07/2012 Ordered oral tablet insulin aspart 15 unit, 0.15 mL, Route: SUB-Q, 03/11/2012 03/12/2012 Discontinued Drug form: SOLN, TID-Before Meals, PRN Blood Glucose Results, Start date: 03/11/12 16:48:00, Duration: 30 day, Stop date: 04/10/12 16:47:00 insulin aspart 9 unit, 0.09 mL, Route: SUB-Q, Drug 03/11/2012 03/12/2012 Discontinued form: SOLN, TID-Before Meals, PRN Blood Glucose Results, Start date: 03/11/12 16:48:00, Duration: 30 day, Stop date: 04/10/12 16:47:00 insulin aspart 12 unit, 0.12 mL, Route: SUB-Q, 03/11/2012 03/12/2012 Discontinued Drug form: SOLN, TID-Before Meals, PRN Blood Glucose Results, Start date: 03/11/12 16:48:00, Duration: 30 day, Stop date: 04/10/12 16:47:00 insulin aspart 6 unit, 0.06 mL, Route: SUB-Q, Drug 03/11/2012 03/12/2012 Discontinued form: SOLN, TID-Before Meals, PRN Blood Glucose Results, Start date: 03/11/12 16:48:00, Duration: 30 day, Stop date: 04/10/12 16:47:00 insulin aspart 3 unit, 0.03 mL, Route: SUB-Q, Drug 03/11/2012 03/12/2012 Discontinued form: SOLN, TID-Before Meals, PRN Blood Glucose Results, Start date: 03/11/12 16:48:00, Duration: 30 day, Stop date: 04/10/12 16:47:00 lisinopril 2.5 mg Substitution Allowed 03/07/2012 Ordered oral tablet Levemir Substitution Allowed 03/07/2012 03/12/2012 Discontinued warfarin Substitution Allowed 03/07/2012 03/12/2012 Discontinued Coumadin 7.5 mg, 1 tab, Route: PO, Drug 03/12/2012 03/12/2012 Completed form: TAB, ONCE, Priority: STAT, Start date: 03/12/12 15:41:00, Stop date: 03/12/12 15:41:00 isosorbide Substitution Allowed 03/07/2012 Ordered mononitrate digoxin 125 mcg Substitution Allowed 03/07/2012 Ordered (0.125 mg) oral tablet metoprolol 25 mg Substitution Allowed 03/07/2012 Ordered oral tablet potassium chloride Substitution Allowed 03/07/2012 Ordered 10 mEq oral capsule, extended release furosemide 40 mg Substitution Allowed 03/07/2012 Ordered oral tablet Iron Chews Substitution Allowed 03/07/2012 Ordered Sodium Chloride 0.9% 1,000 mL, Rate: 125 ml/hr, Infuse 03/07/2012 03/12/2012 Discontinued IV 1,000 mL over: 8 hr, Route: IV, Dosing Weight 82.002 kg, Total Volume: 1,000, Start date: 03/07/12 5:24:00, Duration: 30 day, Stop date: 04/06/12 5:23:00 calcium-vitamin D Substitution Allowed, Soft Stop 03/07/2012 Ordered 150 mg-100 units oral tablet NovoLog Substitution Allowed 03/07/2012 Ordered Pulmicort Flexhaler Substitution Allowed, Soft Stop 03/07/2012 Ordered alteplase 10 mg + 1,000 mL, Rate: 50 ml/hr, Infuse 03/07/2012 03/12/2012 Discontinued Sodium Chloride 0.9% over: 20 hr, Route: INTRAARTERIAL, IV 1,000 mL Dosing Weight 67 kg, Total Volume: 1,000, Start date: 03/07/12 13:23:00, Duration: 7 day, Stop date: 03/14/12 13:22:00 Vital Signs Most recent to oldest [Reference Range]: 1 2 3 Height 165.10 cm (03/07/2012 04:52:00) Temperature Oral [96.4-99.1 DegF] 97.3 DegF (03/12/2012 12:00:00) 98.0 DegF (03/11/2012 04:00:00) 99.5 DegF *HI* (03/10/2012 19:00:00) Systolic Blood Pressure [90-140 mmHg] 134 mmHg (03/12/2012 12:00:00) 143 mmHg *HI* (03/12/2012 08:34:00) 158 mmHg *HI* (03/12/2012 06:32:00) Diastolic Blood Pressure [60-90 mmHg] 56 mmHg *LOW* (03/12/2012 12:00:00) 54 mmHg *LOW* (03/12/2012 08:34:00) 71 mmHg (03/12/2012 06:32:00) Respiratory Rate [14-20 BRMIN] 20 BRMIN (03/12/2012 06:32:00) 20 BRMIN (03/12/2012 00:10:00) 20 BRMIN (03/11/2012 20:14:00) Peripheral Pulse Rate [60-100 bpm] 63 bpm (03/12/2012 12:00:00) 64 bpm (03/12/2012 08:34:00) 61 bpm (03/12/2012 06:32:00) Weight 67 kg (03/07/2012 06:37:00) 82.002 kg (03/07/2012 04:52:00) Results BACTERIAL - SEROLOGY Most recent to [Reference Range]: 1 2 3 MRSA by PCR Negative 1 (03/07/2012 05:18:00) 1Interpretive Data: INTERPRETATION: Negative......No MRSA DNA detected [...] after consultation with an infectious diseases specialist. BEDSIDE GLUCOSE TESTING Most recent to [Reference Range]: 1 2 3 Gluc POC Lif[place]n [70-99 mg/dL] 267 mg/dL 2 *HI* (03/12/2012 11:30:00) 180 mg/dL 3 *HI* (03/12/2012 07:49:00) 123 mg/dL 4 *HI* (03/11/2012 21:11:00) Comment1 Notify RN/MD *NA* (03/12/2012 11:30:00) Notify RN/MD *NA* (03/12/2012 07:49:00) Notify RN/MD *NA* (03/11/2012 21:11:00) 2Interpretive Data: Upper Reportable Limit: 200 mg/dL. 3Interpretive Data: Upper Reportable Limit: 200 mg/dL. 4Interpretive Data: Upper Reportable Limit: 200 mg/dL. CHEMISTRY Most recent to [Reference Range]: 1 2 3 Sodium Lvl [135-145 mEq/L] 141 mEq/L (03/12/2012 05:12:00) 140 mEq/L (03/11/2012 04:11:00) 139 mEq/L (03/10/2012 00:02:00) Potassium Lvl [3.5-5.1 mEq/L] 4.6 mEq/L (03/12/2012 05:12:00) 4.5 mEq/L (03/11/2012 04:11:00) 4.7 mEq/L (03/10/2012 00:02:00) Chloride Lvl [95-109 mEq/L] 103 mEq/L (03/12/2012 05:12:00) 103 mEq/L (03/11/2012 04:11:00) 102 mEq/L (03/10/2012 00:02:00) CO2 [24-32 mEq/L] 28 mEq/L (03/12/2012 05:12:00) 28 mEq/L (03/11/2012 04:11:00) 30 mEq/L (03/10/2012 00:02:00) AGAP [10.0-20.0 mEq/L] 14.6 mEq/L (03/12/2012 05:12:00) 13.5 mEq/L (03/11/2012 04:11:00) 11.7 mEq/L (03/10/2012 00:02:00) Creatinine Lvl [0.5-1.4 mg/dL] 0.8 mg/dL (03/12/2012 05:12:00) 0.8 mg/dL (03/11/2012 04:11:00) 1.0 mg/dL (03/10/2012 00:02:00) BUN [7-22 mg/dL] 18 mg/dL (03/12/2012 05:12:00) 13 mg/dL (03/11/2012 04:11:00) 11 mg/dL (03/10/2012 00:02:00) Glucose Lvl [70-99 mg/dL] 122 mg/dL 5 *HI* (03/12/2012 05:12:00) 220 mg/dL 6 *HI* (03/11/2012 04:11:00) 259 mg/dL 7 *HI* (03/10/2012 00:02:00) Total Protein [6.4-8.4 g/dL] 7.3 g/dL (03/07/2012 05:18:00) Albumin Lvl [3.5-5.0 g/dL] 3.8 g/dL (03/07/2012 05:18:00) Globulin [2.0-4.0 g/dL] 3.5 g/dL (03/07/2012 05:18:00) A/G Ratio [0.7-1.6] 1.1 (03/07/2012 05:18:00) Calcium Lvl [8.5-10.5 mg/dL] 9.0 mg/dL (03/12/2012 05:12:00) 9.2 mg/dL (03/11/2012 04:11:00) 8.0 mg/dL *LOW* (03/10/2012 00:02:00) Phosphorus [2.5-4.5 mg/dL] 2.6 mg/dL (03/11/2012 04:11:00) 2.7 mg/dL (03/10/2012 00:02:00) 2.7 mg/dL (03/09/2012 01:00:00) Magnesium Lvl [1.8-2.4 mg/dL] 2.0 mg/dL (03/11/2012 04:11:00) 1.9 mg/dL (03/10/2012 00:02:00) 1.6 mg/dL *LOW* (03/09/2012 01:00:00) ALT [0-65 U/L] 18 U/L (03/07/2012 05:18:00) AST [0-37 U/L] 16 U/L (03/07/2012 05:18:00) Alk Phos [39-136 U/L] 53 U/L (03/07/2012 05:18:00) Bili Total [0.2-1.3 mg/dL] 1.0 mg/dL (03/07/2012 05:18:00) Bili Direct [0.0-0.3 mg/dL] 0.2 mg/dL (03/07/2012 05:18:00) Bili Indirect [0.0-1.0 mg/dL] 0.8 mg/dL (03/07/2012 05:18:00) Lactic Acid Lvl [0.5-2.2 mMol/L] 2.3 mMol/L 8 *HI* (03/07/2012 05:40:00) Ca Ion mgdL [4.65-5.20 mg/dL] 4.72 mg/dL (03/10/2012 00:02:00) Ca Ion [1.16-1.30 mMol/L] 1.18 mMol/L (03/10/2012 00:02:00) Ca Norm [1.16-1.30 mMol/L] 1.19 mMol/L (03/10/2012 00:02:00) Ca Norm mgdL [4.65-5.20 mg/dL] 4.76 mg/dL (03/10/2012 00:02:00) 5Interpretive Data: Adult reference range values reflect the clinical guidelines of the [employer] [place] [employer]. 6Interpretive Data: Adult reference range values reflect the clinical guidelines of the [employer] [place] [employer]. 7Interpretive Data: Adult reference range values reflect the clinical guidelines of the [employer] [place] [employer]. 8Result Comment: Specimen Grossly Hemolyzed. HEMATOLOGY Most recent to oldest [Reference Range]: 1 2 3 WBC [3.7-10.4 K/CMM] 7.9 K/CMM (03/12/2012 05:12:00) 6.5 K/CMM (03/11/2012 04:11:00) 9.8 K/CMM (03/10/2012 00:02:00) RBC [4.20-5.40 M/CMM] 3.18 M/CMM *LOW* (03/12/2012 05:12:00) 3.03 M/CMM *LOW* (03/11/2012 04:11:00) 3.24 M/CMM *LOW* (03/10/2012 00:02:00) Hgb [12.0-16.0 g/dL] 10.7 g/dL *LOW* (03/12/2012 05:12:00) 10.2 g/dL *LOW* (03/11/2012 04:11:00) 10.8 g/dL *LOW* (03/10/2012 00:02:00) Hct [36.0-48.0 %] 30.7 % *LOW* (03/12/2012 05:12:00) 29.3 % *LOW* (03/11/2012 04:11:00) 31.8 % *LOW* (03/10/2012 00:02:00) MCV [81.0-99.0 fL] 96.5 fL (03/12/2012 05:12:00) 96.8 fL (03/11/2012 04:11:00) 98.0 fL (03/10/2012 00:02:00) MCH [27.0-31.0 pg] 33.6 pg *HI* (03/12/2012 05:12:00) 33.7 pg *HI* (03/11/2012 04:11:00) 33.4 pg *HI* (03/10/2012 00:02:00) MCHC [32.0-36.0 g/dL] 34.9 g/dL (03/12/2012 05:12:00) 34.8 g/dL (03/11/2012 04:11:00) 34.1 g/dL (03/10/2012 00:02:00) RDW [11.5-14.5 %] 13.4 % (03/12/2012 05:12:00) 13.1 % (03/11/2012 04:11:00) 13.5 % (03/10/2012 00:02:00) Platelet [133-450 K/CMM] 195 K/CMM (03/12/2012 05:12:00) 151 K/CMM (03/11/2012 04:11:00) 139 K/CMM (03/10/2012 00:02:00) MPV [7.4-10.4 fL] 8.7 fL (03/12/2012 05:12:00) 8.8 fL (03/11/2012 04:11:00) 8.4 fL (03/10/2012 00:02:00) Segs [45.0-75.0 %] 61.2 % (03/12/2012 05:12:00) 62.5 % (03/11/2012 04:11:00) 72.7 % (03/10/2012 00:02:00) Lymphocytes [20.0-40.0 %] 25.5 % (03/12/2012 05:12:00) 24.6 % (03/11/2012 04:11:00) 15.9 % *LOW* (03/10/2012 00:02:00) Monocytes [2.0-12.0 %] 9.9 % (03/12/2012 05:12:00) 11.6 % (03/11/2012 04:11:00) 10.7 % (03/10/2012 00:02:00) Eosinophils [0.0-4.0 %] 3.0 % (03/12/2012 05:12:00) 1.2 % (03/11/2012 04:11:00) 0.6 % (03/10/2012 00:02:00) Basophils [0.0-1.0 %] 0.4 % (03/12/2012 05:12:00) 0.1 % (03/11/2012 04:11:00) 0.1 % (03/10/2012 00:02:00) Segs-Bands # [1.5-8.1 K/CMM] 4.8 K/CMM (03/12/2012 05:12:00) 4.1 K/CMM (03/11/2012 04:11:00) 7.1 K/CMM (03/10/2012 00:02:00) Lymphocytes # [1.0-5.5 K/CMM] 2.0 K/CMM (03/12/2012 05:12:00) 1.6 K/CMM (03/11/2012 04:11:00) 1.6 K/CMM (03/10/2012 00:02:00) Monocytes # [0.0-0.8 K/CMM] 0.8 K/CMM (03/12/2012 05:12:00) 0.8 K/CMM (03/11/2012 04:11:00) 1.1 K/CMM *HI* (03/10/2012 00:02:00) Eosinophils # [0.0-0.5 K/CMM] 0.2 K/CMM (03/12/2012 05:12:00) 0.1 K/CMM (03/11/2012 04:11:00) 0.1 K/CMM (03/10/2012 00:02:00) Basophils # [0.0-0.2 K/CMM] 0.0 K/CMM (03/12/2012 05:12:00) 0.0 K/CMM (03/11/2012 04:11:00) 0.0 K/CMM (03/10/2012 00:02:00) Large Plt [None Seen] Slight *ABN* (03/08/2012 06:26:00) PT [12.0-14.7 seconds] 16.3 seconds *HI* (03/12/2012 05:12:00) 14.5 seconds (03/11/2012 15:06:00) 14.8 seconds *HI* (03/11/2012 04:11:00) INR [0.85-1.17] 1.32 9 *HI* (03/12/2012 05:12:00) 1.13 10 (03/11/2012 15:06:00) 1.16 11 (03/11/2012 04:11:00) Fibrinogen Lvl [230-510 mg/dL] 371 mg/dL (03/09/2012 01:00:00) 348 mg/dL (03/08/2012 15:32:00) 204 mg/dL *LOW* (03/08/2012 09:44:00) PTT [22.9-35.8 seconds] 75.5 seconds 12 *HI* (03/12/2012 05:12:00) 72.1 seconds 13 *HI* (03/11/2012 21:30:00) 61.3 seconds 14 *HI* (03/11/2012 15:06:00) 9Interpretive Data: RECOMMENDED RANGES FOR PROTIME INR: 2.0-3.0 for most medical and surgical thromboembolic states. 2.5-3.5 for artificial heart valves and recurrent embolism. INR SHOULD BE USED ONLY FOR PATIENTS ON STABLE ANTICOAGULANT THERAPY. 10Interpretive Data: RECOMMENDED RANGES FOR PROTIME INR: 2.0-3.0 for most medical and surgical thromboembolic states. 2.5-3.5 for artificial heart valves and recurrent embolism. INR SHOULD BE USED ONLY FOR PATIENTS ON STABLE ANTICOAGULANT THERAPY. 11Interpretive Data: RECOMMENDED RANGES FOR PROTIME INR: 2.0-3.0 for most medical and surgical thromboembolic states. 2.5-3.5 for artificial heart valves and recurrent embolism. INR SHOULD BE USED ONLY FOR PATIENTS ON STABLE ANTICOAGULANT THERAPY. 12Interpretive Data: Heparin Therapeutic Range: 57 - 92 Seconds 13Interpretive Data: Heparin Therapeutic Range: 57 - 92 Seconds 14Interpretive Data: Heparin Therapeutic Range: 57 - 92 Seconds
[2018-07-19 15:09] LABS: BASOPHILS % 0.3 % (0.0-1.0); EOSINOPHILS % 0.6 % (0.0-6.0); LYMPHOCYTES # (AUTO) 1.7 (1.0-3.2); LYMPHOCYTES % 23.9 % (18.0-39.1); MEAN CORPUSCULAR HEMOGLOBIN 30.7 pg (28-32); MEAN CORPUSCULAR VOLUME 96.1 fL (81-99); MONOCYTES # (AUTO) 0.6 (0.2-0.8); MONOCYTES % 7.9 % (4.4-11.3); NEUTROPHILS # (AUTO) 4.8 (2.1-6.9); NEUTROPHILS % 66.9 % (38.7-80.0); PLATELET COUNT 233 x10e3/uL (140-360); RED BLOOD COUNT 2.28 x10e6/uL (3.6-5.1); RED CELL DISTRIBUTION WIDTH 13.3 % (11.7-14.4)
[2018-07-19 15:10] LABS: HEMATOCRIT 21.9 % (34.2-44.1)
[2018-07-19] MEDS ORDERED: PANTOPRAZOLE 40 MG 10ML VIAL IV ONE (15:11)
[2018-07-19] MEDS ORDERED: SODIUM CHLORIDE 0.9% 250ML 250 ML IV ONE (15:15)
[2018-07-19 15:16] LABS: PARTIAL THROMBOPLASTIN TIME 78.4 seconds (23.8-35.5)
[2018-07-19 15:22] LABS: ALBUMIN/GLOBULIN RATIO 0.9 (0.8-2.0); ANION GAP 17.1 mmol/L (8-16); CALCIUM 9.1 mg/dL (8.4-10.2); CREATININE, SERUM 1.02 mg/dL (0.57-1.11); MAGNESIUM 1.5 MG/DL (1.3-2.1); POTASSIUM 4.1 mmol/L (3.5-5.1)
[2018-07-19 15:42] LABS: PROTHROMBIN TIME > 120.0 seconds (11.9-14.5)
[2018-07-19] MEDS ORDERED: ONDANSETRON HCL INJ 2 MG/ML VIAL IV PRN (16:00)
[2018-07-19] MEDS ORDERED: PHYTONADIONE 10 MG/ML AMP SQ ONE ×2 (16:00)
[2018-07-19] MEDS ORDERED: DEXTROSE 50% SYRINGE 50 ML IV PRN (16:00)
[2018-07-19] MEDS: INSULIN LISPRO 100 UNIT/1 ML 3ML VIAL SQ SCH ×2 (17:20→21:00)
[2018-07-19 18:41] VITALS: BP 115/60
[2018-07-19 18:55] VITALS: BP 124/75
--- NOTE | 2018-07-19 19:56 | NUR ---
RECEIVED PT IN BED AOX3 .RESPIRATIONS ARE EVEN AND UNLABORED .STAGE 1 AT [facility] RT AC 20 G .CALL LIGHT WITH IN REACH .. TELE [id number] SR WITH PVC CONTINUE TO MONITOR
[2018-07-19 20:00] VITALS: BP 115/53
[2018-07-19] MEDS ORDERED: SODIUM CHLORIDE 0.9% 250ML 250 ML ONE (21:35)
[2018-07-20] VITALS (8 sets, daily range): BP systolic 101–145; BP diastolic 52–83
[2018-07-20] MEDS: FUROSEMIDE INJ 10 MG/ML 2 ML VIAL IV PRN ×4 (00:09→13:50)
[2018-07-20] MEDS ORDERED: SODIUM CHLORIDE 0.9% 250ML 250 ML ONE ×3 (00:28→11:09)
--- NOTE | 2018-07-20 06:11 | NUR ---
TRANSFUSED 2 UNIT OF FROZEN PLASMA AND I UNIT OF BLOOD .NO REACTION NOTED PT RESTING .CALL LIGHT WAS WITH IN REACH .CONTINUE TO MONITOR
[2018-07-20 06:36] LABS: BASOPHILS % 0.3 % (0.0-1.0); EOSINOPHILS # (AUTO) 0.1 (0.0-0.4); EOSINOPHILS % 1.3 % (0.0-6.0); HEMATOCRIT 23.4 % (34.2-44.1); HEMOGLOBIN 7.7 g/dL (12.0-16.0); LYMPHOCYTES # (AUTO) 1.8 (1.0-3.2); MEAN CORPUSCULAR HEMOGLOBIN 30.2 pg (28-32); MEAN CORPUSCULAR HGB CONC 32.9 g/dL (31-35); MEAN CORPUSCULAR VOLUME 91.8 fL (81-99); MONOCYTES # (AUTO) 0.6 (0.2-0.8); MONOCYTES % 7.7 % (4.4-11.3); NEUTROPHILS % 66.3 % (38.7-80.0); PLATELET COUNT 208 x10e3/uL (140-360); RED BLOOD COUNT 2.55 x10e6/uL (3.6-5.1); RED CELL DISTRIBUTION WIDTH 15.3 % (11.7-14.4)
[2018-07-20 07:01] LABS: ALBUMIN 3.4 g/dL (3.5-5.0); ALBUMIN/GLOBULIN RATIO 0.9 (0.8-2.0); ANION GAP 12.3 mmol/L (8-16); CALCIUM 9.3 mg/dL (8.4-10.2); CREATININE, SERUM 0.93 mg/dL (0.57-1.11); POTASSIUM 3.3 mmol/L (3.5-5.1)
[2018-07-20] MEDS: INSULIN LISPRO 100 UNIT/1 ML 3ML VIAL SQ SCH ×4 (07:30→21:00)
[2018-07-20 07:50] LABS: INR 2.25; PROTHROMBIN TIME 26.6 seconds (11.9-14.5)
[2018-07-20] MEDS ORDERED: DICYCLOMINE HCL 10 MG CAP PO PRN (09:30)
--- NOTE | 2018-07-20 10:26 | History and Physical ---
CHIEF COMPLAINT: Warfarin-induced coagulopathy with GI bleed, severe coagulopathy with undetectable INR. HISTORY OF PRESENT ILLNESS: The patient is an 88-year-old female with possible mix-up with her warfarin. The patient came in with PT level of greater than 120 and PTT of 78.4. We could not get the INR level. The patient also has hemoglobin and hematocrit of 7.0 and 21.9. The patient did receive multiple blood transfusions and also FFP along with vitamin K. The patient is otherwise stable at this time. PAST MEDICAL HISTORY: Includes: 1. Severe peripheral vascular disease with multiple interventions. 2. Patient also has atrial fibrillation on anticoagulant therapy. 3. Hypertension. 4. Multiple angioplasties of the right lower extremity. 5. Diabetes, type 2. 6. Chronic anemia. 7. Dyslipidemia. 8. Diastolic dysfunction congestive heart failure, compensated. 9. Aortic stenosis. 10. Deep venous thrombosis. 11. Pulmonary embolism previously. PAST SURGICAL HISTORY 1. Adenoidectomy. 2. Coronary artery bypass graft surgery. 3. . 4. Cataracts. 5. Hip surgery. 6. Hysterectomy. 7. Knee surgery. 8. Tonsillectomy. SOCIAL HISTORY: Patient does not smoke or use alcohol. No recreational drugs. ALLERGIES: NO KNOWN ALLERGIES. HOME MEDICATIONS: List reviewed. REVIEW OF SYSTEMS: As mentioned above. PHYSICAL EXAMINATION GENERAL: The patient is in no acute distress. She is awake. VITAL SIGNS: Temperature is 98. Blood pressure 145/83. Pulse rate 82. Respirations 18. HEENT: Normocephalic, atraumatic, anicteric. NECK: Supple grossly. PULMONARY: Diminished breath sounds. CARDIOVASCULAR: Atrial fibrillation. ABDOMEN: Obese. EXTREMITIES: No cyanosis or edema. NEUROLOGIC: No gross focal deficit. LABORATORY: Sodium 136, potassium 3.3, chloride 98, bicarb 29, BUN 35, creatinine 0.9. Glucose 226. WBC is 7.5, hemoglobin 7.7, hematocrit 23.4, platelets 208. IMPRESSION 1. Coagulopathy, severe, with warfarin toxicity. 2. Multiple chronic baseline problems including atrial fibrillation, peripheral vascular disease, history of DVT and pulmonary embolism with compensated diastolic dysfunction congestive heart failure. 3. History of coronary artery bypass surgery with coronary artery disease. PLAN: Continue to manage the coagulopathy. Consultation with Dr. Powell for followup. The patient may need coagulation treatment but probably best to not use warfarin, but we will get the opinion of Dr. Mauro Powell. Job#: [id number] KALYAN
[2018-07-20] MEDS: POTASSIUM CHLORIDE 10MEQ EA PO SCH (10:35)
[2018-07-20] MEDS: ISOSORBIDE MONONITRATE 20 MG TAB PO SCH (10:35)
[2018-07-20] MEDS: FUROSEMIDE 40 MG TAB PO SCH (10:35)
[2018-07-20] MEDS: METOPROLOL SUCCINATE 50 MG TAB XL PO SCH ×2 (10:36→21:00)
[2018-07-20] MEDS: LISINOPRIL 2.5 MG TAB PO SCH (10:36)
[2018-07-20] MEDS: GABAPENTIN 100 MG CAP PO SCH (10:36)
[2018-07-20] MEDS: TRAMADOL HCL 50 MG TAB PO SCH ×2 (11:53→21:30)
--- NOTE | 2018-07-20 14:20 | NUR ---
Visit made by the Spiritual Care Department Pastoral Visitor, Claire Venegas. PV provided pastoral presence, prayer, hospitality, and supportive listening. Pastoral Visitor informed pt/family of the scope of [employer] and availability. DEJA CAMARILLO [employer] Social Worker Spiritual Care Department O: [phone] Pager: [phone] ([phone] number calling from)
--- NOTE | 2018-07-20 14:48 | NUR ---
Pt is alert and oriented. Lives in her own home with her grandson and a friend. Emergency contact is shoaib Farah [phone]. Pt uses a walker. Also has a cane, BSC, wheelchair. States she doesn't have home health, "don't need it" at this time. Her goal is to return home on discharge. Her grandson or friend will provide transportation. PCP is Dr. Wilfred Golden.
--- NOTE | 2018-07-20 15:05 | NUR ---
spoke to in regards to therapy recommendation for SNF and MD states he will speak to patient about it tomorrow when he rounds. communicated this to CM My.
--- NOTE | 2018-07-20 15:06 | NUR ---
Therapy recommended SNF for discharge. Explained to Dr. Key that the holiday is coming up so if she needs it we need to start the process soon. He said he will see pt tomorrow and determine if she needs SNF. Will follow up in AM.
--- NOTE | 2018-07-20 15:06 | NUR ---
WOUND CARE CONSULTATION: THIS IS AN 88 YEAR OLD FEMALE PATIENT ADMITTED TO [facility] FOR ANEMIA-WARFARIN INDUCED AND COAGULOPATHY. HEAD TO TOE SKIN ASSESSMENT PERFORMED. PATIENT HAS A STAGE 1 PRESSURE ULCER TO THE SACRUM MEASURING [id number], 100% NON-BLANCHABLE. NO OTHER WOUNDS NOTED WITH ASSESSMENT. LABS: WBC7.49 ALB3.4 [id number] RECOMMENDATION: -CONTINUE ALTERNATING PRESSURE RELIEF MATTRESS. -APPLY BILATERAL HEEL PROTECTORS WITH PILLOW SUSPENSION. -TURN EVERY 2 HOURS AND PRN. -NURSING TO APPLY VENELEX THEN ALLEVYN FOAM TO STAGE 1 PRESSURE ULCER TO SACRUM; CHANGE DAILY AND PRN. THANK YOU FOR THIS WOUND CARE CONSULT. Addendum: 07/20/18 at 1512 by Mariah Bell RN Amended: Links added.
--- NOTE | 2018-07-20 19:29 | NUR ---
RECEIVED PT IN BEDAOX3 .NO ACUTE DISTRESS NOTED .STAGE 1 AT SACRUM .FAMILY AT THE BEDSIDE .CALL LIGHT WITH IN REACH .CONTINUE TO MONITOR .
[2018-07-20] MEDS ORDERED: NON-FORMULARY MEDICATION (Insulin Detemir (Levemir) 25 UNIT) SQ SCH (21:00)
[2018-07-20] MEDS ORDERED: ATORVASTATIN 20 MG TAB PO SCH (21:00)
[2018-07-20] MEDS: ATORVASTATIN 40 MG TAB PO SCH (21:00)
[2018-07-20] MEDS: INSULIN DETEMIR 100 UNIT/ML PEN SQ SCH (21:00)
[2018-07-21] VITALS (7 sets, daily range): BP systolic 100–126; BP diastolic 52–81
[2018-07-21 04:36] LABS: BASOPHILS % 0.2 % (0.0-1.0); EOSINOPHILS # (AUTO) 0.2 (0.0-0.4); EOSINOPHILS % 3.1 % (0.0-6.0); HEMATOCRIT 26.4 % (34.2-44.1); HEMOGLOBIN 8.7 g/dL (12.0-16.0); LYMPHOCYTES % 32.2 % (18.0-39.1); MEAN CORPUSCULAR HEMOGLOBIN 29.3 pg (28-32); MEAN CORPUSCULAR VOLUME 88.9 fL (81-99); MONOCYTES # (AUTO) 0.6 (0.2-0.8); MONOCYTES % 9.3 % (4.4-11.3); NEUTROPHILS # (AUTO) 3.4 (2.1-6.9); NEUTROPHILS % 54.7 % (38.7-80.0); PLATELET COUNT 224 x10e3/uL (140-360); RED BLOOD COUNT 2.97 x10e6/uL (3.6-5.1); RED CELL DISTRIBUTION WIDTH 17.2 % (11.7-14.4)
[2018-07-21 05:04] LABS: ANION GAP 12.2 mmol/L (8-16); CALCIUM 9.2 mg/dL (8.4-10.2); POTASSIUM 3.2 mmol/L (3.5-5.1)
--- NOTE | 2018-07-21 06:47 | NUR ---
PT RESTED DURING THE NIGHT .PT DENIES PAIN ,CALL LIGHT WITH IN REACH .REPORT GIVEN TO THE ON COMING NURSE
--- NOTE | 2018-07-21 07:10 | NUR ---
PATIENT IS IN STABLE CONDITION WITH NO S/S OF RESPIRATORY DISTRESS. NO PAIN VOICED. STAGE 1 NOTED TO SACRUM AREA AND AT THIS TIME IS OPEN TO AIR. DIAPER APPLIED. BED ALARM ON. GRANDSON PRESENT IN ROOM. CALL LIGHT IS WITHIN REACH, INSTRUCTED TO CALL FOR ASSISTANCE NEEDED.
[2018-07-21] MEDS: INSULIN LISPRO 100 UNIT/1 ML 3ML VIAL SQ SCH ×4 (07:30→20:48)
--- NOTE | 2018-07-21 08:13 | NUR ---
SPOKE WITH Chhaya GU REGARDING PATIENT'S POTASSIUM LEVEL OF 3.2- ORDER RECEIVED FOR POTASSIUM 40MEQ.
[2018-07-21] MEDS ORDERED: POTASSIUM CHLORIDE 20 MEQ TAB CR PO STA (08:15)
[2018-07-21] MEDS: LISINOPRIL 2.5 MG TAB PO SCH (08:36)
[2018-07-21] MEDS: POTASSIUM CHLORIDE 10MEQ EA PO SCH (08:36)
[2018-07-21] MEDS: RIVAROXABAN 15 MG TABLET PO SCH (08:36)
[2018-07-21] MEDS: FUROSEMIDE 40 MG TAB PO SCH (08:36)
[2018-07-21] MEDS: GABAPENTIN 100 MG CAP PO SCH (08:36)
[2018-07-21] MEDS: METOPROLOL SUCCINATE 50 MG TAB XL PO SCH ×2 (08:36→20:47)
[2018-07-21] MEDS: ISOSORBIDE MONONITRATE 20 MG TAB PO SCH (08:36)
[2018-07-21] MEDS ORDERED: BALSAM PERU/CASTOR OIL 5 GM OINT...G. TP SCH (09:00)
[2018-07-21] MEDS ORDERED: POTASSIUM CHLORIDE 20MEQ/15ML UDC NG ONE (09:00)
[2018-07-21] MEDS ORDERED: POTASSIUM CHLORIDE 10MEQ EA PO ONE (09:15)
[2018-07-21] MEDS: TRAMADOL HCL 50 MG TAB PO SCH ×2 (09:30→20:47)
--- NOTE | 2018-07-21 10:01 | Consultation ---
DATE OF CONSULTATION: July 20, 2018 CARDIOLOGY CONSULTATION REASON FOR CONSULTATION: Coagulopathy. REQUESTING PHYSICIAN: Dr. [place] Key HISTORY OF PRESENT ILLNESS: This is pleasant 88-year-old that presented with abnormal INR. She stated today her blood was high and she came to the emergency room for evaluation. In the ER, the PT was high. INR was not able to be detected. She received some FFP and some PRBCs, and she is doing okay today. She has a history of recent admission and discharge from [facility] last month, and she was sent home with some Lovenox and some Coumadin also. She had cardiac catheterization in May that showed severely depressed systolic function, EF 25%. It also showed LA thrombus. She was then referred to Dr. Malloy, a [place] physician, for possible TAVR. She denied any palpitations, any dizziness, any diaphoresis, any shortness of breath or headache. PAST MEDICAL HISTORY: AFib, LA thrombus, DVT, PE, severely depressed LV function, hypertension, PAD, PVD, chronic anemia, hyperlipidemia, aortic stenosis, non-Hodgkin lymphoma, and diabetes. PAST SURGICAL HISTORY: Tonsillectomy, CABG, , hysterectomy, cataract surgery, hip surgery, knee surgery, adenoidectomy, peripheral angioplasty with thrombectomy. FAMILY HISTORY: Positive for CAD. SOCIAL HISTORY: No smoking. No drinking. She lives at home with her grandson. MEDICATIONS: See med list. ALLERGIES: SHE IS NOT ALLERGIC TO ANY MEDICATION. REVIEW OF SYSTEMS: Negative, except those mentioned above. PHYSICAL EXAMINATION VITAL SIGNS: Temperature 97, heart rate 84, blood pressure 126/60, respirations 19, oxygen saturation 95% on room air. GENERAL: She is awake, alert and oriented times 3. HEENT: Mucous membranes are moist. NECK: Supple. LUNGS: Bilaterally decreased breath sounds. CARDIOVASCULAR: Irregularly irregular. ABDOMEN: Soft. NEUROLOGIC: Intact. EXTREMITIES: No edema. LABS: Sodium 135, potassium 3.2, chloride 96, CO2 30, BUN 33, creatinine 1.00, glucose 227. White blood cells 5.12, hemoglobin 8.7, hematocrit 26.4, platelets 224. PT 26.6, PTT 78.4, INR 2.25. IMPRESSION 1. Coagulopathy. 2. Atrial fibrillation. 3. History of severe aortic stenosis. 4. History of deep venous thrombosis and pulmonary embolism. 5. Peripheral arterial disease. 6. Hypertension. 7. Diabetes. 8. Anemia. 9. History of left atrial thrombus. ASSESSMENT AND PLAN 1. She received FFP and PRBCs. INR is better today, and hemoglobin is better at 8.7. 2. We will go ahead and switch her to Xarelto due to problem with coagulopathy. 3. She has severe aortic stenosis, and she has an appointment with Dr. Malloy for possible TAVR, a [place] [facility]. 4. Potassium is low. We will go ahead and replace that. 5. She had recent cardiac catheterization and SHUKRI at [facility] last month. 6. Recent echocardiogram with severely depressed systolic function, EF 25%. Recommended LifeVest, which she did not want, but wanted to go ahead and have the TAVR. Thank you for this consultation. Dictated by Royal Harding NP Job#: [id number]
[2018-07-21] MEDS: BALSAM PERU/CASTOR OIL 60 GM OINT...G. TP SCH (10:02)
--- NOTE | 2018-07-21 10:02 | NUR ---
CHRISTAL APPLIED TO PATIENT'S SACRUM AREA
--- NOTE | 2018-07-21 11:05 | Diagnostic Imaging Report ---
PROCEDURE: CHEST SINGLE (PORTABLE) COMPARISON: None. INDICATIONS: COUGH FINDINGS: Left subclavian central venous port is noted. A catheter tip projects over the low superior vena cava. Postsurgical changes of the mediastinum with multiple median sternotomy wires and mediastinal surgical clips. Atherosclerotic calcification of the thoracic aorta. Heart size is at the upper limits of normal with prominence of the central pulmonary interstitium. No consolidation or sizable pleural effusion. No acute osseous abnormality. Degenerative changes of the shoulder girdles. CONCLUSION: Postsurgical changes in the mediastinum with mild enlargement of the cardiac silhouette and pulmonary venous congestion. Dictated by: Sloan Park M.D. on 07/21/2018 at 11:14 Electronically approved by: Sloan Park M.D. on 07/21/2018 at 11:14
--- NOTE | 2018-07-21 11:16 | NUR ---
RADHA spoke with Dr. Key. Stated pt may discharge or Thursday. Received order for home health. RADHA spoke with pt at bedside. She stated she has [facility]. RADHA called [facility] to verify [phone]. Spoke with Megan who stated pt is under service with them but they are a MD service. They see pt every 2-3 weeks. She stated that they work along side home health, but they are not a home health company. Radha spoke with pt and informed her of this. Pt is agreeable for RADHA to set up home health. Choice letter signed for [facility]. Signed copy placed in chart. Copy to pt and placed in her transition of care folder. IMM letter delivered and explained to pt. She verbalized understanding. Signed copy in chart. Copy to pt.
--- NOTE | 2018-07-21 11:21 | NUR ---
Referral for home health faxed to [facility] P [phone] F [phone]
--- NOTE | 2018-07-21 18:17 | NUR ---
CALLED AND SPOKE WITH DR. MICHAEL REGARDING PATIENT'S REQUEST FOR SENOKOT. DR. MICHAEL INFORMED OF PATIENT'S COUGH. NEW ORDERS PLACED.
[2018-07-21] MEDS: GUAIFENESIN 200 MG/10 ML UDC PO SCH (18:43)
--- NOTE | 2018-07-21 19:33 | NUR ---
PATIENT IS IN STABLE CONDITION WITH NO S/S OF RESPIRATORY DISTRESS. NO PAIN VOICED. ALLEVYN AND DIAPER APPLIED. HEEL PROTECTORS APPLIED. GRANDSON PRESENT IN ROOM. CALL LIGHT WITHIN REACH, INSTRUCTED TO CALL FOR ASSISTANCE NEEDED. REPORT GIVEN TO ONCOMING NURSE.
[2018-07-21] MEDS: ATORVASTATIN 40 MG TAB PO SCH (20:47)
[2018-07-21] MEDS: INSULIN DETEMIR 100 UNIT/ML PEN SQ SCH (20:48)
[2018-07-22] VITALS (9 sets, daily range): BP systolic 103–133; BP diastolic 51–82
[2018-07-22] MEDS: GUAIFENESIN 200 MG/10 ML UDC PO SCH ×4 (00:12→17:00)
[2018-07-22 07:30] LABS: BASOPHILS % 0.2 % (0.0-1.0); EOSINOPHILS # (AUTO) 0.2 (0.0-0.4); EOSINOPHILS % 1.4 % (0.0-6.0); HEMATOCRIT 27.8 % (34.2-44.1); HEMOGLOBIN 9.1 g/dL (12.0-16.0); LYMPHOCYTES # (AUTO) 1.9 (1.0-3.2); LYMPHOCYTES % 15.7 % (18.0-39.1); MEAN CORPUSCULAR HEMOGLOBIN 30.3 pg (28-32); MEAN CORPUSCULAR HGB CONC 32.7 g/dL (31-35); MEAN CORPUSCULAR VOLUME 92.7 fL (81-99); MONOCYTES # (AUTO) 1.1 (0.2-0.8); MONOCYTES % 8.6 % (4.4-11.3); NEUTROPHILS # (AUTO) 9.1 (2.1-6.9); NEUTROPHILS % 73.6 % (38.7-80.0); PLATELET COUNT 232 x10e3/uL (140-360); RED CELL DISTRIBUTION WIDTH 16.3 % (11.7-14.4)
[2018-07-22] MEDS: INSULIN LISPRO 100 UNIT/1 ML 3ML VIAL SQ SCH ×5 (07:30→20:57)
--- NOTE | 2018-07-22 07:33 | NUR ---
REPORT GIVEN TO ONCOMING NURSE,WALKING ROUNDS MADE.
[2018-07-22 07:47] LABS: ANION GAP 13.1 mmol/L (8-16); BLOOD UREA NITROGEN 32 mg/dL (7-26); BUN/CREATININE RATIO 37 (6-25); CALCIUM 9.3 mg/dL (8.4-10.2); CARBON DIOXIDE 30 mmol/L (22-29); CHLORIDE 100 mmol/L (98-107); CREATININE, SERUM 0.87 mg/dL (0.57-1.11); EST GLOMERULAR FILTRATION RATE > 60 ML/MIN (60-); GLUCOSE 132 mg/dL (74-118); MAGNESIUM 1.8 MG/DL (1.3-2.1); POTASSIUM 4.1 mmol/L (3.5-5.1); SODIUM 139 mmol/L (136-145)
--- NOTE | 2018-07-22 09:00 | NUR ---
Pt received resting in bed with shoaib at bedside. Alert and oriented x4 , saline lock #20 inserted into left AC. Oriented to staff and surroundings, and encouraged to press call peters if help needed. Pt verbalized understanding of teaching. All meds given as ordered. Fall precautions maintained. Call peters within reach. Will monitor.
[2018-07-22] MEDS: FUROSEMIDE 40 MG TAB PO SCH (09:03)
[2018-07-22] MEDS: GABAPENTIN 100 MG CAP PO SCH (09:03)
[2018-07-22] MEDS: LISINOPRIL 2.5 MG TAB PO SCH (09:03)
[2018-07-22] MEDS: RIVAROXABAN 15 MG TABLET PO SCH (09:03)
[2018-07-22] MEDS: POTASSIUM CHLORIDE 10MEQ EA PO SCH (09:03)
[2018-07-22] MEDS: METOPROLOL SUCCINATE 50 MG TAB XL PO SCH ×2 (09:03→20:56)
[2018-07-22] MEDS: ISOSORBIDE MONONITRATE 20 MG TAB PO SCH (09:03)
[2018-07-22] MEDS: TRAMADOL HCL 50 MG TAB PO SCH ×2 (09:04→20:55)
[2018-07-22] MEDS: BALSAM PERU/CASTOR OIL 60 GM OINT...G. TP SCH (09:04)
[2018-07-22] MEDS ORDERED: ALBUTEROL/IPRATROPIUM 3 ML NEB NEB PRN (09:30)
[2018-07-22] MEDS: BENZONATATE 100 MG CAP PO PRN (11:35)
--- NOTE | 2018-07-22 12:35 | NUR ---
Pt left for CT chest
[2018-07-22] MEDS ORDERED: SODIUM CHLORIDE 0.9% 250ML 250 ML ONE (12:48)
[2018-07-22] MEDS ORDERED: FUROSEMIDE INJ 10 MG/ML 2 ML VIAL IV ONE (12:50)
[2018-07-22] MEDS: ALBUTEROL/IPRATROPIUM 3 ML NEB NEB SCH ×2 (13:00→20:13)
[2018-07-22] MEDS: PIPER-TAZ 3.375 GM 50 ML IV SCH ×2 (13:05→17:00)
--- NOTE | 2018-07-22 13:05 | NUR ---
Pt returned from CT. Care provided. Will monitor
--- NOTE | 2018-07-22 13:15 | Diagnostic Imaging Report ---
EXAMINATION: CT scan of the chest without contrast. TECHNIQUE: Spiral CT images of the chest were performed from the lung apices to the level of the adrenal glands. No intravenous contrast was administered per physician's request. Coronal and sagittal reformatted images were obtained. COMPARISON: Portable chest 07/21/2018. CLINICAL HISTORY:Cough and fever and shortness of breath for one month DISCUSSION: ABSENCE OF INTRAVENOUS CONTRAST DECREASES SENSITIVITY FOR DETECTION OF FOCAL LESIONS AND VASCULAR PATHOLOGY. LINES/TUBES: None. LUNGS AND AIRWAYS: Linear opacity in the lateral right upper lobe (sagittal image 36), likely reflect subsegmental atelectasis or scarring. Similar linear opacities are noted in the lateral aspect of the lingula. No nodules, masses or consolidation. Mild bronchial wall thickening in bilateral lower lobes, with associated mild tree in bud and groundglass opacities in the left lower lobe (for example series 3, image 70). Airways are clear, without endobronchial lesions. PLEURA: No pneumothorax or pleural effusions. HEART AND MEDIASTINUM: The thyroid gland is normal. Heart size is normal. No pericardial effusion. Extensive atherosclerotic calcification of the coronary arteries, thoracic aorta and to a lesser degree aortic valves and mitral annulus. Aorta is not aneurysmal. Main pulmonary artery is in the upper limit of normal in caliber, measuring 3.1 cm LYMPH NODES: There is no mediastinal, hilar or axillary lymphadenopathy. ABDOMEN: Limited unenhanced views of the upper abdomen show no abnormality within the visualized liver, spleen, or kidneys. Fatty replacement of the pancreas. The adrenal glands are unremarkable. BONES AND SOFT TISSUES: No aggressive lytic lesions. Generalized osteopenia. Multilevel degenerative disc changes in the thoracic spine. Soft tissues are grossly unremarkable. Mild right and moderate to marked left glenohumeral joint degenerative changes. Midline sternotomy wires. IMPRESSION: 1. Findings in the left lower lobe likely represent endobronchial spread of infection. Given the bronchial wall thickening, acute bronchitis/developing pneumonia are considered. No consolidation. Signed by: Dr. Higinio Vasquez M.D. on 07/22/2018 1:12 PM
--- NOTE | 2018-07-22 18:18 | NUR ---
Pt resting comfortably in bed. Call peters within reach. Will monitor
[2018-07-22] MEDS: ATORVASTATIN 40 MG TAB PO SCH (20:55)
[2018-07-22] MEDS: INSULIN DETEMIR 100 UNIT/ML PEN SQ SCH (20:57)
[2018-07-23] VITALS (8 sets, daily range): BP systolic 85–147; BP diastolic 38–71
[2018-07-23] MEDS: PIPER-TAZ 3.375 GM 50 ML IV SCH ×4 (00:04→17:02)
[2018-07-23] MEDS: GUAIFENESIN 200 MG/10 ML UDC PO SCH ×4 (00:05→17:02)
[2018-07-23] MEDS: ALBUTEROL/IPRATROPIUM 3 ML NEB NEB SCH ×4 (00:15→19:46)
[2018-07-23 04:50] LABS: BASOPHILS % 0.2 % (0.0-1.0); EOSINOPHILS # (AUTO) 0.2 (0.0-0.4); EOSINOPHILS % 1.2 % (0.0-6.0); HEMATOCRIT 28.8 % (34.2-44.1); HEMOGLOBIN 8.9 g/dL (12.0-16.0); LYMPHOCYTES # (AUTO) 2.1 (1.0-3.2); LYMPHOCYTES % 16.9 % (18.0-39.1); MEAN CORPUSCULAR HEMOGLOBIN 29.4 pg (28-32); MEAN CORPUSCULAR HGB CONC 30.9 g/dL (31-35); MONOCYTES % 8.3 % (4.4-11.3); NEUTROPHILS # (AUTO) 8.8 (2.1-6.9); NEUTROPHILS % 72.9 % (38.7-80.0); PLATELET COUNT 270 x10e3/uL (140-360); RED BLOOD COUNT 3.03 x10e6/uL (3.6-5.1); RED CELL DISTRIBUTION WIDTH 16.1 % (11.7-14.4)
[2018-07-23 05:16] LABS: ANION GAP 13.1 mmol/L (8-16); CALCIUM 9.3 mg/dL (8.4-10.2); CREATININE, SERUM 1.09 mg/dL (0.57-1.11); POTASSIUM 4.1 mmol/L (3.5-5.1)
[2018-07-23] MEDS: SENNOSIDES 8.6 MG TAB PO PRN (06:43)
--- NOTE | 2018-07-23 06:48 | NUR ---
PT C/O CONSTIPATION,PRN MEDICATION GIVEN PER OCT.PT SITTING UP IN BED WITH NO S/S OF DISTRESS.RESPIRATIONS EVEN/NON LABORED.CALL LIGHT WITHIN EASY REACH.
--- NOTE | 2018-07-23 07:10 | NUR ---
PT ALERT RESP EVEN AND UNLABORED AT THIS TIME, PT SITTING UP IN CHAIR AT BEDSIDE, NO DISTRESS NOTED AT THIS TIME, NO C/O PAIN WHEN ASKED, CALL LIGHT IN REACH.
--- NOTE | 2018-07-23 07:29 | NUR ---
REPORT GIVEN TO ONCOMING NURSE.WALKING ROUNDS MADE.PT SITTING UP IN CHAIR.NO S/S OF DISTRESS NOTED.
[2018-07-23] MEDS: INSULIN LISPRO 100 UNIT/1 ML 3ML VIAL SQ SCH ×4 (07:30→21:07)
[2018-07-23] MEDS: FUROSEMIDE 40 MG TAB PO SCH (09:00)
[2018-07-23] MEDS: ISOSORBIDE MONONITRATE 20 MG TAB PO SCH (09:00)
[2018-07-23] MEDS: GABAPENTIN 100 MG CAP PO SCH (09:00)
[2018-07-23] MEDS: LISINOPRIL 2.5 MG TAB PO SCH (09:00)
[2018-07-23] MEDS: POTASSIUM CHLORIDE 10MEQ EA PO SCH (09:00)
[2018-07-23] MEDS: METOPROLOL SUCCINATE 50 MG TAB XL PO SCH ×2 (09:00→21:06)
[2018-07-23] MEDS: RIVAROXABAN 15 MG TABLET PO SCH (09:00)
[2018-07-23] MEDS: BALSAM PERU/CASTOR OIL 60 GM OINT...G. TP SCH (09:00)
[2018-07-23] MEDS: TRAMADOL HCL 50 MG TAB PO SCH ×2 (09:30→21:07)
--- NOTE | 2018-07-23 19:06 | NUR ---
Report given to oncoming nurse.
[2018-07-23] MEDS: ATORVASTATIN 40 MG TAB PO SCH (21:06)
[2018-07-23] MEDS: INSULIN DETEMIR 100 UNIT/ML PEN SQ SCH (21:07)
[2018-07-24] VITALS (8 sets, daily range): BP systolic 99–125; BP diastolic 53–73
[2018-07-24] MEDS: GUAIFENESIN 200 MG/10 ML UDC PO SCH ×5 (00:27→23:49)
[2018-07-24] MEDS: PIPER-TAZ 3.375 GM 50 ML IV SCH ×5 (00:28→23:49)
[2018-07-24] MEDS: ALBUTEROL/IPRATROPIUM 3 ML NEB NEB SCH ×4 (01:00→20:04)
[2018-07-24 04:53] LABS: BASOPHILS % 0.2 % (0.0-1.0); EOSINOPHILS # (AUTO) 0.1 (0.0-0.4); HEMATOCRIT 27.3 % (34.2-44.1); HEMOGLOBIN 8.5 g/dL (12.0-16.0); LYMPHOCYTES # (AUTO) 1.5 (1.0-3.2); MEAN CORPUSCULAR HEMOGLOBIN 29.1 pg (28-32); MEAN CORPUSCULAR HGB CONC 31.1 g/dL (31-35); MEAN CORPUSCULAR VOLUME 93.5 fL (81-99); MONOCYTES # (AUTO) 1.2 (0.2-0.8); MONOCYTES % 10.1 % (4.4-11.3); NEUTROPHILS # (AUTO) 8.8 (2.1-6.9); NEUTROPHILS % 75.4 % (38.7-80.0); PLATELET COUNT 277 x10e3/uL (140-360); RED BLOOD COUNT 2.92 x10e6/uL (3.6-5.1); RED CELL DISTRIBUTION WIDTH 15.6 % (11.7-14.4)
[2018-07-24] MEDS: SENNOSIDES 8.6 MG TAB PO PRN (06:26)
--- NOTE | 2018-07-24 06:57 | NUR ---
REPORT GIVEN TO ONCOMING NURSE,WALKING ROUNDS MADE.
--- NOTE | 2018-07-24 07:00 | NUR ---
pt alert resp even and unlabored at this time, pt easily aroused, when asked no c/o pain. call light in reach.
[2018-07-24] MEDS: INSULIN LISPRO 100 UNIT/1 ML 3ML VIAL SQ SCH ×4 (07:30→20:47)
[2018-07-24] MEDS: FUROSEMIDE 40 MG TAB PO SCH (09:00)
[2018-07-24] MEDS: BALSAM PERU/CASTOR OIL 60 GM OINT...G. TP SCH (09:00)
[2018-07-24] MEDS: METOPROLOL SUCCINATE 50 MG TAB XL PO SCH ×2 (09:00→20:48)
[2018-07-24] MEDS: POTASSIUM CHLORIDE 10MEQ EA PO SCH (09:00)
[2018-07-24] MEDS: RIVAROXABAN 15 MG TABLET PO SCH (09:00)
[2018-07-24] MEDS: GABAPENTIN 100 MG CAP PO SCH (09:00)
[2018-07-24] MEDS: ISOSORBIDE MONONITRATE 20 MG TAB PO SCH (09:00)
[2018-07-24] MEDS: LISINOPRIL 2.5 MG TAB PO SCH (09:00)
[2018-07-24] MEDS: TRAMADOL HCL 50 MG TAB PO SCH ×2 (09:30→20:48)
--- NOTE | 2018-07-24 16:40 | NUR ---
Nutrition Screen Note RD Recommendation for Physician: Continue diet as ordered Plan of Care: RD following and monitoring for tolerance and adequacy Nutrition reason for involvement: LOS, Primary Diagnose(s): anemia, warfarin induced coagulopathy Ht:66 in Wt:164.25lb BMI:26.5 kg/m2 IBW:130lb RD Assessment:07/24/2018 initial encounter with patient. Diet Hx: Pt has no known food allergies. Pt Current Diet: 1800 ADA Malnutrition Evaluation (07/24/2018) The patient does not meet criteria for a specified degree of malnutrition at this time. Will re-evaluate at follow-up as appropriate. Diet Education Needs Assessment: Diet education not indicated. Diet Adequacy: Meeting calorie needs, Meeting protein needs, Meeting fluid needs Tolerance: Tolerating PO Nutrition Care Level: Erik Jimenez RD, LD, [facility]
--- NOTE | 2018-07-24 18:55 | NUR ---
Received patient awake on bed, on semi wilson's position, not in distress, with O2 support via nasal cannula. Call light within reached, family member at the bedside, advised to call for assistance when needed Will continue to monitor.
--- NOTE | 2018-07-24 19:09 | NUR ---
report given to oncoming nurse, for continued care.
[2018-07-24] MEDS: ATORVASTATIN 40 MG TAB PO SCH (20:47)
[2018-07-24] MEDS: INSULIN DETEMIR 100 UNIT/ML PEN SQ SCH (20:47)
[2018-07-25] VITALS (7 sets, daily range): BP systolic 95–137; BP diastolic 51–60
[2018-07-25] MEDS: BENZONATATE 100 MG CAP PO PRN (00:34)
[2018-07-25] MEDS: ALBUTEROL/IPRATROPIUM 3 ML NEB NEB SCH ×4 (01:00→19:54)
[2018-07-25] MEDS: SENNOSIDES 8.6 MG TAB PO PRN (05:24)
[2018-07-25] MEDS: PIPER-TAZ 3.375 GM 50 ML IV SCH ×4 (05:24→23:47)
[2018-07-25] MEDS: GUAIFENESIN 200 MG/10 ML UDC PO SCH ×4 (05:24→23:47)
[2018-07-25] MEDS: INSULIN LISPRO 100 UNIT/1 ML 3ML VIAL SQ SCH ×4 (07:30→20:23)
[2018-07-25] MEDS: ISOSORBIDE MONONITRATE 20 MG TAB PO SCH (08:26)
[2018-07-25] MEDS: LISINOPRIL 2.5 MG TAB PO SCH (08:26)
[2018-07-25] MEDS: GABAPENTIN 100 MG CAP PO SCH (08:26)
[2018-07-25] MEDS: RIVAROXABAN 15 MG TABLET PO SCH (08:26)
[2018-07-25] MEDS: POTASSIUM CHLORIDE 10MEQ EA PO SCH (08:26)
[2018-07-25] MEDS: BALSAM PERU/CASTOR OIL 60 GM OINT...G. TP SCH (08:26)
[2018-07-25] MEDS: FUROSEMIDE 40 MG TAB PO SCH (08:26)
[2018-07-25] MEDS: METOPROLOL SUCCINATE 50 MG TAB XL PO SCH ×2 (08:27→22:14)
[2018-07-25] MEDS: TRAMADOL HCL 50 MG TAB PO SCH ×2 (08:27→20:22)
[2018-07-25] MEDS: METHYLPREDNISOLONE SOD SUCC 40 MG/ML VIAL IV SCH ×2 (14:33→20:22)
--- NOTE | 2018-07-25 18:49 | NUR ---
pt had a large stool this evening.
--- NOTE | 2018-07-25 19:00 | NUR ---
Received patient awake on bed, no complaints of pain at this time, not in distress, still having non productive cough, on IV steroids.. Patient had a large BM today per dayshift. Call light within reached, patient verbalized understanding. Will continue to monitor.
--- NOTE | 2018-07-25 19:17 | NUR ---
report given to oncoming nurse. pt resting comfortably.
[2018-07-25] MEDS: ATORVASTATIN 40 MG TAB PO SCH (20:22)
[2018-07-25] MEDS: INSULIN DETEMIR 100 UNIT/ML PEN SQ SCH (20:23)
[2018-07-26] VITALS (8 sets, daily range): BP systolic 111–151; BP diastolic 56–71
[2018-07-26] MEDS: ALBUTEROL/IPRATROPIUM 3 ML NEB NEB SCH ×4 (01:07→19:40)
[2018-07-26] MEDS: PIPER-TAZ 3.375 GM 50 ML IV SCH ×3 (05:15→18:00)
[2018-07-26] MEDS: METHYLPREDNISOLONE SOD SUCC 40 MG/ML VIAL IV SCH ×3 (05:15→21:06)
[2018-07-26] MEDS: GUAIFENESIN 200 MG/10 ML UDC PO SCH ×3 (05:15→16:56)
--- NOTE | 2018-07-26 07:00 | NUR ---
RCD PT AT BED PT IS ALERT AND ORIENTED ASSESSMENT DONE PT RESTING ON BED NO SIGNS OF ANY DISTRESS NOTED IV PATENT BED LOW AND LOCKED CALL LIGHT IN REACH
[2018-07-26] MEDS: INSULIN LISPRO 100 UNIT/1 ML 3ML VIAL SQ SCH ×4 (07:30→21:07)
[2018-07-26] MEDS: ISOSORBIDE MONONITRATE 20 MG TAB PO SCH (09:00)
[2018-07-26] MEDS: POTASSIUM CHLORIDE 10MEQ EA PO SCH (09:00)
[2018-07-26] MEDS: LISINOPRIL 2.5 MG TAB PO SCH (09:00)
[2018-07-26] MEDS: GABAPENTIN 100 MG CAP PO SCH (09:00)
[2018-07-26] MEDS: RIVAROXABAN 15 MG TABLET PO SCH (09:00)
[2018-07-26] MEDS: FUROSEMIDE 40 MG TAB PO SCH (09:00)
[2018-07-26] MEDS: BALSAM PERU/CASTOR OIL 60 GM OINT...G. TP SCH (09:00)
[2018-07-26] MEDS: METOPROLOL SUCCINATE 50 MG TAB XL PO SCH ×2 (09:00→21:06)
[2018-07-26] MEDS ORDERED: FUROSEMIDE INJ 10 MG/ML 2 ML VIAL IV PRN (09:30)
[2018-07-26] MEDS ORDERED: SODIUM CHLORIDE 0.9% 250ML 250 ML IV NR (09:30)
[2018-07-26] MEDS: TRAMADOL HCL 50 MG TAB PO SCH ×2 (09:30→21:07)
--- NOTE | 2018-07-26 12:10 | NUR ---
PAGED AND NOTIFIED THE BLOOD SUGAR GOT NEW ORDERS
[2018-07-26] MEDS ORDERED: INSULIN DETEMIR 100 UNIT/ML PEN SQ ONE (12:15)
[2018-07-26] MEDS ORDERED: SODIUM CHLORIDE 0.9% 250ML 250 ML ONE ×2 (14:43→20:30)
--- NOTE | 2018-07-26 14:45 | NUR ---
BLOOD TRANSFUSION STARTED AFTER VERIFIED WITH ANOTHER RN PT RESTING ON BED VITALS CHECKED
--- NOTE | 2018-07-26 18:30 | NUR ---
BLOOD TRANSFUSION COMPLETED VITALS CHECKED PT RESTING ON BED
--- NOTE | 2018-07-26 18:55 | NUR ---
RECEIVED PT RESTING IN BED WITH HOB ELEVATED.NO S/S OF ACUTE DISTRESS NOTED.RESPIRATIONS EVEN/NON LABORED.NO C/O REPORTED AT THIS TIME.PT IV TO LEFT AC INTACT WITH ZOSYN INFUSING AT THIS TIME.INSTRUCTED PT TO CALL FOR ASSISTANCE NEEDED.PT VERBALIZED UNDERSTANDING.CALL LIGHT WITHIN EASY REACH.
--- NOTE | 2018-07-26 19:14 | NUR ---
PT RESTING ON BED BED SIDE REPORT GIVEN TO ONCOMING NURSE
--- NOTE | 2018-07-26 20:57 | Consultation ---
DATE OF CONSULTATION: REASON FOR CONSULT: Shortness of breath. HPI: Ms. Bucio is an 88-year-old female. She presented to the emergency room with the complaint of shortness of breath, presented with GI bleed and patient's hematocrit was 7 and 21.9, and INR level was high. She has atrial fibrillation and pulmonary embolism and on anticoagulation. She is unable to give me much history. The source of history is the chart. She has been in the hospital since 07/21/2018. She started having cough and shortness of breath and pulmonary was consulted for further evaluation. She was also having wheezing as well. She underwent CT of the chest, which showed evidence of possible left lower lobe pneumonia and there is an area of bronchiectasis as well. Her white cell count was 6000 on 07/21, went up to 12,000, not it is 11,000. She has been started on IV Zosyn and steroids by Dr. Key. Patient reports that she is feeling better. She denies any chest pain, nausea, vomiting. REVIEW OF SYSTEMS GENERAL: Denies any fever, chills. HEAD : Denies any head trauma. ENT: Denies any earache. CVS: Denies any chest pain. RESPIRATORY: Shortness of breath. GI: Denies any nausea vomiting. REST OF THE REVIEW SYSTEMS: Negative except as in HPI. PAST MEDICAL HISTORY: Peripheral arterial disease, hypertension, diabetes, anemia, diastolic dysfunction, heart failure, aortic stenosis. Cardiology is following the patient. History of atrial fibrillation, coagulopathy, chronic anticoagulant use. PAST SURGICAL HISTORY: Adenoidectomy, CABG, , knee surgery, tonsillectomy. FAMILY AND SOCIAL HISTORY: She does not smoke or drink. PHYSICAL EXAM VITAL SIGNS: Temperature 97, pulse of 70, blood pressure 145/60. HEAD: Atraumatic, normocephalic. NECK: Supple. CHEST: Occasional wheezing. Few crackles. HEART: S1, S2 audible. ABDOMEN: Soft, nontender, nondistended. EXTREMITIES: No clubbing, cyanosis or edema. NEUROLOGIC: Awake and alert. LABS: White count of 11,000, hemoglobin 8.5, platelets 277,000. Chemistry, sodium 141, potassium 4.1, chloride 100. BUN 31, creatinine 1.9. ASSESSMENT AND PLAN: Mr. Bucio is an 88-year-old female. She became short of breath while she was in the hospital. She has severe and her appointment has been scheduled. CT of the chest reviewed and it is showing possible evidence of left lower lobe pneumonia and she has some bronchiectasis as well. PLAN: Continue the patient on Zosyn. Patient is on 40 mg q.8 h IV steroids. I will decrease it to 20 mg IV q.8 h. Continue the patient on nebulizer treatment, oxygen as needed. Thank you for this consult. Job#: [id number]
--- NOTE | 2018-07-26 21:00 | NUR ---
PT RESTING IN BED WITH NO S/S OF DISTRESS.RESPIRATIONS EVEN/NON LABORED.VERIFIED CONSENT AND ORDER FOR BLOOD TRANSFUSION.BEDSIDE VERIFICATION DONE WITH LESLIE LAGUNA.SECOND UNIT OF BLOOD STARTED TO LEFT AC 20G AT 100ML/HR.STAYED WITH PT FOR 15 MINUTES,V/S T 97.3,PULSE 81, RR 19, BP 144/63,SPO2 99% ON 1LPM VIA NC.NO S/S OF ADVERSE REACTION OBSERVED OR REPORTED.CALL LIGHT WITHIN EASY REACH.WILL CONTINUE TO MONITOR CLOSELY.
[2018-07-26] MEDS: ATORVASTATIN 40 MG TAB PO SCH (21:06)
[2018-07-26] MEDS: INSULIN DETEMIR 100 UNIT/ML PEN SQ SCH (21:07)
[2018-07-26] MEDS: BENZONATATE 100 MG CAP PO PRN (22:45)
[2018-07-27] VITALS (8 sets, daily range): BP systolic 121–151; BP diastolic 56–78
[2018-07-27] MEDS: GUAIFENESIN 200 MG/10 ML UDC PO SCH ×4 (01:00→17:59)
[2018-07-27] MEDS: PIPER-TAZ 3.375 GM 50 ML IV SCH ×4 (01:00→17:59)
[2018-07-27] MEDS: ALBUTEROL/IPRATROPIUM 3 ML NEB NEB SCH ×4 (01:15→19:35)
[2018-07-27] MEDS: METHYLPREDNISOLONE SOD SUCC 40 MG/ML VIAL IV SCH ×3 (05:06→21:27)
--- NOTE | 2018-07-27 07:10 | NUR ---
REPORT GIVEN TO ONCOMING NURSE,WALKING ROUNDS MADE,PT RESTING IN BED WITH NO S/S OF DISTRESS NOTED.
[2018-07-27] MEDS: INSULIN LISPRO 100 UNIT/1 ML 3ML VIAL SQ SCH ×4 (07:30→21:27)
[2018-07-27] MEDS: BALSAM PERU/CASTOR OIL 60 GM OINT...G. TP SCH (09:00)
[2018-07-27] MEDS: POTASSIUM CHLORIDE 10MEQ EA PO SCH (09:00)
[2018-07-27] MEDS: RIVAROXABAN 15 MG TABLET PO SCH (09:00)
[2018-07-27] MEDS: ISOSORBIDE MONONITRATE 20 MG TAB PO SCH (09:00)
[2018-07-27] MEDS: GABAPENTIN 100 MG CAP PO SCH (09:00)
[2018-07-27] MEDS: FUROSEMIDE 40 MG TAB PO SCH (09:00)
[2018-07-27] MEDS: LISINOPRIL 2.5 MG TAB PO SCH (09:00)
[2018-07-27] MEDS: METOPROLOL SUCCINATE 50 MG TAB XL PO SCH ×2 (09:00→21:27)
--- NOTE | 2018-07-27 10:27 | NUR ---
Spoke with Dr. Key regarding discharge plan. He stated that pt is sounding better, planning for discharge tomorrow. Pt needs home O2 eval. Order placed. IMM letter delivered and explained to pt. She verbalized understanding. Signed copy placed in chart. Copy to pt.
--- NOTE | 2018-07-27 10:48 | NUR ---
HOME 02 EVAL DONE. ROOM AIR RESTING = 96% AND AFTER EXERTION = 98%
--- NOTE | 2018-07-27 14:45 | NUR ---
RT completed home O2 eval. Pt does not qualify. O2 saturation 96-98% at rest and on exertion.
--- NOTE | 2018-07-27 18:38 | NUR ---
PT RESTING ON BED BED SIDE REPORT GIVEN TO ONCOMING NURSE
--- NOTE | 2018-07-27 20:30 | NUR ---
CALL PLACED TO DR MICHAEL TO NOTIFY PT'S BLOOD SUGAR,PROMPTED TO LEAVE MESSAGE,MESSAGE LEFT,AWAITING CALL BACK.
[2018-07-27] MEDS: INSULIN DETEMIR 100 UNIT/ML PEN SQ SCH (21:27)
[2018-07-27] MEDS: ATORVASTATIN 40 MG TAB PO SCH (21:27)
[2018-07-28] VITALS: BP 163/74
[2018-07-28] MEDS: PIPER-TAZ 3.375 GM 50 ML IV SCH ×2 (00:30→06:30)
[2018-07-28] MEDS: GUAIFENESIN 200 MG/10 ML UDC PO SCH ×2 (00:30→06:30)
[2018-07-28] MEDS: ALBUTEROL/IPRATROPIUM 3 ML NEB NEB SCH ×3 (01:10→12:42)
[2018-07-28] MEDS: BENZONATATE 100 MG CAP PO PRN (02:53)
[2018-07-28 04:00] VITALS: BP 143/71
[2018-07-28 04:59] LABS: BASOPHILS % 0.1 % (0.0-1.0); HEMATOCRIT 34.8 % (34.2-44.1); HEMOGLOBIN 11.5 g/dL (12.0-16.0); LYMPHOCYTES # (AUTO) 0.8 (1.0-3.2); LYMPHOCYTES % 5.4 % (18.0-39.1); MEAN CORPUSCULAR VOLUME 90.9 fL (81-99); MONOCYTES # (AUTO) 0.5 (0.2-0.8); MONOCYTES % 3.7 % (4.4-11.3); NEUTROPHILS % 90.1 % (38.7-80.0); PLATELET COUNT 325 x10e3/uL (140-360); RED BLOOD COUNT 3.83 x10e6/uL (3.6-5.1); RED CELL DISTRIBUTION WIDTH 14.8 % (11.7-14.4)
[2018-07-28] MEDS: METHYLPREDNISOLONE SOD SUCC 40 MG/ML VIAL IV SCH (05:21)
[2018-07-28 05:34] LABS: ANION GAP 13.1 mmol/L (8-16); CALCIUM 9.5 mg/dL (8.4-10.2); CREATININE, SERUM 1.23 mg/dL (0.57-1.11); POTASSIUM 4.1 mmol/L (3.5-5.1)
--- NOTE | 2018-07-28 07:14 | NUR ---
REPORT GIVEN TO ONCOMING NURSE,WALKING ROUNDS MADE.PT RESTING IN BED WITH NO S/S OF DISTRESS.
[2018-07-28 07:50] VITALS: BP 143/71
[2018-07-28 08:00] VITALS: BP 179/93
[2018-07-28] MEDS: POTASSIUM CHLORIDE 10MEQ EA PO SCH (09:05)
[2018-07-28] MEDS: GABAPENTIN 100 MG CAP PO SCH (09:05)
[2018-07-28] MEDS: ISOSORBIDE MONONITRATE 20 MG TAB PO SCH (09:05)
[2018-07-28] MEDS: FUROSEMIDE 40 MG TAB PO SCH (09:05)
[2018-07-28] MEDS: INSULIN LISPRO 100 UNIT/1 ML 3ML VIAL SQ SCH ×2 (09:05→11:23)
[2018-07-28] MEDS: METOPROLOL SUCCINATE 50 MG TAB XL PO SCH (09:06)
[2018-07-28] MEDS: LISINOPRIL 2.5 MG TAB PO SCH (09:06)
[2018-07-28] MEDS: RIVAROXABAN 15 MG TABLET PO SCH (09:06)
--- NOTE | 2018-07-28 10:03 | NUR ---
Spoke with Francie from [employer]. They have received authorization. Will be able to see pt within the next 48 hrs. The office will call pt to schedule a day for them to come out to admit. [facility] [address] [place] [address] Home health information printed out and given to pt.
[2018-07-28] MEDS ORDERED: INSULIN DETEMIR 100 UNIT/ML PEN SQ ONE (10:15)
--- NOTE | 2018-07-28 11:43 | NUR ---
LEFT A MESSAGE WITH DR. MICHAEL REGARDING PT BLOOD SUGAR.
--- NOTE | 2018-07-28 12:52 | NUR ---
PT BS RECHECKED AND COVERED ORDERED BY AND TO CONTINUE WITH D/C. PT DISCHRAGED HOME WITH PRESCRIPTIONS AND D/C INSTRUCTIONS.
--- NOTE | 2018-07-28 14:38 | Discharge Summary ---
PRIMARY CARE PHYSICIAN: Dr. Raymond Golden. CONSULTANTS: Dr. Mauro Powell and Dr. Sloan Armendariz. FINAL DIAGNOSES: 1. Warfarin-induced coagulopathy with bruises and bleed status post fresh frozen plasma infusion and blood transfusion. 2. Baseline atrial fibrillation, aortic stenosis now on Xarelto per recommendation by Dr. Mauro Powell. 3. Acute bronchitis with shortness of breath and wheezing, much improved. 4. Baseline hypertension. 5. Diabetes type 2 on insulin therapy. SUMMARY: The patient is an 87-year-old female who came in with significant coagulopathy. The patient was on warfarin previously. She may have mistaken the dosing. Patient's INR on admission was undetected. PT was very elevated. The patient's hemoglobin and hematocrit were also low as well. Her hemoglobin was 7.0. She had multiple blood transfusions. Hemoglobin now is 11.5, hematocrit 34.8. The patient is stable. She did have acute bronchitis consistent on CT scan of the chest. She is doing much better now. Cough is much improved. She is stable. The patient will go home today. The patient will follow up with Dr. Raymond Golden next week. She does have a cardiac surgical evaluation plan for the following week. She is stable to do so. LABORATORY DATA: Sodium is 136, potassium 4.1, chloride 99, bicarb 28, BUN 44, creatinine 1.2. Glucose 241. Patient is on his insulin therapy. WBC 14, hemoglobin 11.5, hematocrit 34.8 and platelets is 325,000. Of note, her high blood sugar is secondary to steroids, Solu-Medrol. The patient is stable and discharged home today. She will follow up as an outpatient with the plan. Job#: [id number]
== END 2018-07-28 12:43 | disposition home or self-care (01) | DRG 917 ==
LOC: ER 14:01 → ERHOLD 15:50 → MED/SURG2 17:55
PROVIDERS: ADMIT Internal Medicine; ATTEND Internal Medicine
PROC: 30233K1 Transfusion of Nonautologous Frozen Plasma into Peripheral Vein, Percutaneous Approach (ICD-10-PCS; principal; 2018-07-19)
PROC: 30233N1 Transfusion of Nonautologous Red Blood Cells into Peripheral Vein, Percutaneous Approach (ICD-10-PCS; 2018-07-20)
DX: T45.511A Poisoning by anticoagulants, accidental (unintentional), initial encounter (principal); D61.1 Drug-induced aplastic anemia; J18.9 Pneumonia, unspecified organism; I50.32 Chronic diastolic (congestive) heart failure; I48.91 Unspecified atrial fibrillation; I73.9 Peripheral vascular disease, unspecified; Z79.01 Long term (current) use of anticoagulants; Z86.718 Personal history of other venous thrombosis and embolism; Z86.711 Personal history of pulmonary embolism; I11.0 Hypertensive heart disease with heart failure; I25.10 Atherosclerotic heart disease of native coronary artery without angina pectoris; Z95.1 Presence of aortocoronary bypass graft; J20.9 Acute bronchitis, unspecified; E78.5 Hyperlipidemia, unspecified; Z83.3 Family history of diabetes mellitus; Z82.49 Family history of ischemic heart disease and other diseases of the circulatory system; E11.9 Type 2 diabetes mellitus without complications; I35.0 Nonrheumatic aortic (valve) stenosis; J47.9 Bronchiectasis, uncomplicated; Z79.4 Long term (current) use of insulin
CPT/HCPCS: 36415; 71045; 71250; 80048; 80053; 82948; 83735; 85025; 85610; 85730; 86850; 86900; 86920; 93005; 94640; 96372; 97139; 99284; J1940; J2543; J2920; J3430; J7050; P9016; P9017